=== PATIENT | male | born 1990 | race Caucasian/White ===

== ENCOUNTER 2017-12-08 19:43 | Inpatient (IN) | payer BC ==
[~2017-12-08] VITALS: Ht 177.8 cm; Wt 80.9 kg
[2017-12-08 20:50] VITALS: BP 202/113; PULSE 110; TEMP 97.9
[2017-12-08] MEDS ORDERED: APIDRAVL SQ (21:01)
[2017-12-08 23:11] VITALS: BP 197/108; PULSE 110; TEMP 98.1
[2017-12-09] VITALS (7 sets, daily range): BP systolic 150–179; BP diastolic 86–104; PULSE 101–113; TEMP 97.9–98.7
[2017-12-09 05:43] LABS: PH 5 (5-8); URINE APPEARANCE Clear; URINE BILIRUBIN Negative (NEGATIVE); URINE BLOOD 2+ (NEGATIVE); URINE COLOR Yellow; URINE GLUCOSE 3+ (NEGATIVE); URINE KETONE Negative (NEGATIVE); URINE LEUKOCYTE ESTERASE Negative (NEGATIVE); URINE NITRATE Negative (NEGATIVE); URINE PROTEIN(semi-quant) 3+ (NEGATIVE); URINE UROBILINOGEN Negative (NEGATIVE)
[2017-12-09 06:02] LABS: URINE RBC None Seen /hpf; URINE WBC 0-2 /hpf
[2017-12-09 06:03] LABS: AMORPHOUS CRYSTAL Present /uL; URINE BACTERIA Occasional /hpf
[2017-12-09 06:06] LABS: URINE PROTEIN:CREAT RATIO 23.04 (0.00-0.14)
[2017-12-09 06:08] LABS: COLLECTION METHOD CLEAN CATCH
[2017-12-09 06:46] LABS: MEAN CELL VOLUME 86 fl (80.0-100.0); MEAN CORPUSCULAR HGB CONC 35 g/dl (33.0-37.0); MEAN PLATELET VOLUME 9.1 fl (7.4-10.4); PLATELET COUNT 89 K/mm3 (130-400); RED BLOOD COUNT 2.09 M/mm3 (4.20-5.60); REDCELL DISTRIBUTION WIDTH-CV 14.4 % (11.5-14.5)
[2017-12-09 06:51] LABS: HEMATOCRIT 17.9 % (42.0-52.0); HEMOGLOBIN 6.2 g/dl (13.5-18.0); MEAN CORPUSCULAR HEMOGLOBIN 30 pg (27.0-31.0)
[2017-12-09 06:55] LABS: ALBUMIN 2.9 gm/dL (3.5-5.0); POTASSIUM 3.9 mmol/L (3.4-5.0)
[2017-12-09 07:11] LABS: CALCIUM 5.1 mg/dL (8.4-10.2); CREATININE, serum 18.25 mg/dL (0.66-1.25); PHOSPHOROUS 9.4 mg/dL (2.5-4.5)
[2017-12-09 08:56] LABS: BAND 15 % (0-10); LYMPHOCYTE 17 % (20.0-51.0); NEUTROPHILS 67 % (42.0-75.2); PLATELET ESTIMATE DECREASED (NORMAL)
[2017-12-09 09:44] LABS: CREATININE, serum 18.37 mg/dL (0.66-1.25)
[2017-12-09 11:51] LABS: RETIC # 0.09 M/mm3 (0.02-0.16); RETIC % 4.3 % (0.5-3.52)
[2017-12-09 12:24] LABS: CREATINE KINASE 1383 U/L (55-170); LACTATE DEHYDROGENASE 1569 U/L (313-618)
[2017-12-09 12:34] LABS: TOTAL IRON BINDING CAPACITY 325 ug/dL (261-462)
[2017-12-09 12:36] LABS: IRON,SERUM 81 ug/dL (35-150)
[2017-12-09 12:37] LABS: ERYTHROCYTE SEDIMENTATION RATE > 140 mm/hr (0-15)
[2017-12-09 13:00] LABS: FERRITIN 395 ng/mL (18-464)
[2017-12-09 18:13] LABS: MEAN CELL VOLUME 86 fl (80.0-100.0); MEAN CORPUSCULAR HGB CONC 34 g/dl (33.0-37.0); MEAN PLATELET VOLUME 8.4 fl (7.4-10.4); PLATELET COUNT 99 K/mm3 (130-400); RED BLOOD COUNT 2.18 M/mm3 (4.20-5.60); REDCELL DISTRIBUTION WIDTH-CV 14.5 % (11.5-14.5)
[2017-12-09 18:14] LABS: HEMATOCRIT 18.8 % (42.0-52.0); MEAN CORPUSCULAR HEMOGLOBIN 29 pg (27.0-31.0)
[2017-12-09 18:15] LABS: HEMOGLOBIN 6.4 g/dl (13.5-18.0)
[2017-12-09 18:22] LABS: ALBUMIN 3.2 gm/dL (3.5-5.0)
[2017-12-09 18:30] LABS: CREATININE, serum 18.16 mg/dL (0.66-1.25)
[2017-12-09 18:31] LABS: CALCIUM 4.9 mg/dL (8.4-10.2); PHOSPHOROUS 9.3 mg/dL (2.5-4.5)
[2017-12-10] VITALS (20 sets, daily range): BP systolic 143–185; BP diastolic 67–121; PULSE 78–116; TEMP 97.5–98.9
[2017-12-10 06:41] LABS: MEAN CELL VOLUME 86 fl (80.0-100.0); MEAN CORPUSCULAR HGB CONC 35 g/dl (33.0-37.0); MEAN PLATELET VOLUME 9.2 fl (7.4-10.4); PLATELET COUNT 98 K/mm3 (130-400); RED BLOOD COUNT 1.91 M/mm3 (4.20-5.60); REDCELL DISTRIBUTION WIDTH-CV 14.6 % (11.5-14.5)
[2017-12-10 06:45] LABS: MEAN CORPUSCULAR HEMOGLOBIN 30 pg (27.0-31.0)
[2017-12-10 06:46] LABS: HEMATOCRIT 16.5 % (42.0-52.0); HEMOGLOBIN 5.8 g/dl (13.5-18.0)
[2017-12-10 06:56] LABS: ALBUMIN 2.7 gm/dL (3.5-5.0); BILIRUBIN,TOTAL 0.3 mg/dL (0.0-1.0); POTASSIUM 4.3 mmol/L (3.4-5.0); TOTAL PROTEIN 5.2 gm/dL (6.4-8.2)
[2017-12-10 07:02] LABS: INR 1.1 (0.8-3.0); PROTHROMBIN TIME 12.2 SECONDS (9.7-12.8)
[2017-12-10 07:05] LABS: PARTIAL THROMBOPLASTIN TIME 28.5 SECONDS (26.0-37.0)
[2017-12-10 07:16] LABS: CREATININE, serum 19.02 mg/dL (0.66-1.25)
[2017-12-10 07:17] LABS: CALCIUM 5.9 mg/dL (8.4-10.2)
[2017-12-10 11:32] LABS: HIV 1/2 Antibodies Non-Reactive; HIV-1p24 Antigen Non-Reactive
[2017-12-10 17:20] LABS: PTH,INTACT 462.1 pg/mL (6.6-88.9)
[2017-12-10 19:54] LABS: HEMATOCRIT 22.3 % (42.0-52.0); HEMOGLOBIN 7.7 g/dl (13.5-18.0)
[2017-12-10 21:44] LABS: TRANSFERRIN 170 mg/dL (180-329)
[2017-12-11] VITALS (20 sets, daily range): BP systolic 144–184; BP diastolic 80–102; PULSE 93–105; TEMP 97.2–98.9
[2017-12-11 00:08] LABS: HEPATITIS B CORE AB,TOTAL Negative (()); HEPATITIS B SURFACE ANTIBODY <2.0 (()); HEPATITIS B SURFACE ANTIGEN Negative (())
[2017-12-11 00:19] LABS: FOLATE (FOLIC ACID) 5.9 ng/mL (7.0-31.4)
[2017-12-11 06:49] LABS: BASO # 0.1 (0.0-0.2); BASO % 0.6 % (0.0-2.0); EOS # 0.3 (0.0-0.7); EOS % 2.5 % (0-4.0); GRAN # 9.3 (1.4-6.5); LYMPH % 15.4 % (20.0-51.0); MEAN CELL VOLUME 85 fl (80.0-100.0); MEAN CORPUSCULAR HGB CONC 34 g/dl (33.0-37.0); MEAN PLATELET VOLUME 9.4 fl (7.4-10.4); MONO # 0.9 (0.1-0.6); MONO % 7.2 % (1.7-9.3); PLATELET COUNT 136 K/mm3 (130-400); RED BLOOD COUNT 2.81 M/mm3 (4.20-5.60); REDCELL DISTRIBUTION WIDTH-CV 14.9 % (11.5-14.5)
[2017-12-11 06:50] LABS: HEMOGLOBIN 8.2 g/dl (13.5-18.0); MEAN CORPUSCULAR HEMOGLOBIN 29 pg (27.0-31.0)
[2017-12-11 07:02] LABS: BILIRUBIN,TOTAL 0.5 mg/dL (0.0-1.0); CALCIUM 6.2 mg/dL (8.4-10.2); POTASSIUM 5.4 mmol/L (3.4-5.0); TOTAL PROTEIN 5.4 gm/dL (6.4-8.2)
[2017-12-11 07:16] LABS: CREATININE, serum 15.5 mg/dL (0.66-1.25)
[2017-12-11 16:51] LABS: URINE TOTAL VOLUME 1275 mL
[2017-12-11 17:15] LABS: URINE CREATININE CLEARANCE 4.5 mL/min (97-137)
[2017-12-11 22:33] LABS: C-ANCA 14 U/mL (0-99)
[2017-12-12] VITALS (8 sets, daily range): BP systolic 143–168; BP diastolic 81–98; PULSE 87–105; TEMP 97.8–98.4
[2017-12-12 06:55] LABS: ALBUMIN 2.7 gm/dL (3.5-5.0); BILIRUBIN,TOTAL 0.2 mg/dL (0.0-1.0); CALCIUM 6.9 mg/dL (8.4-10.2); POTASSIUM 3.7 mmol/L (3.4-5.0); TOTAL PROTEIN 5.1 gm/dL (6.4-8.2)
[2017-12-12 06:58] LABS: BASO % 0.3 % (0.0-2.0); EOS # 0.3 (0.0-0.7); EOS % 2.8 % (0-4.0); GRAN # 6.6 (1.4-6.5); GRAN % 65.2 % (42.2-75.2); LYMPH # 2.2 (1.2-3.4); LYMPH % 21.2 % (20.0-51.0); MEAN CELL VOLUME 85 fl (80.0-100.0); MEAN CORPUSCULAR HGB CONC 35 g/dl (33.0-37.0); MEAN PLATELET VOLUME 9.1 fl (7.4-10.4); MONO % 9.4 % (1.7-9.3); PLATELET COUNT 124 K/mm3 (130-400); RED BLOOD COUNT 2.68 M/mm3 (4.20-5.60); REDCELL DISTRIBUTION WIDTH-CV 14.8 % (11.5-14.5)
[2017-12-12 06:59] LABS: HEMATOCRIT 22.8 % (42.0-52.0); MEAN CORPUSCULAR HEMOGLOBIN 30 pg (27.0-31.0)
[2017-12-12 07:10] LABS: CREATININE, serum 12.6 mg/dL (0.66-1.25)
[2017-12-13] VITALS (12 sets, daily range): BP systolic 95–178; BP diastolic 73–100; PULSE 94–106; TEMP 97.9–98.7
[2017-12-13 07:01] LABS: BASO # 0.1 (0.0-0.2); BASO % 0.5 % (0.0-2.0); EOS # 0.5 (0.0-0.7); EOS % 3.9 % (0-4.0); GRAN % 66.6 % (42.2-75.2); LYMPH # 2.3 (1.2-3.4); LYMPH % 18.7 % (20.0-51.0); MEAN CELL VOLUME 86 fl (80.0-100.0); MEAN CORPUSCULAR HGB CONC 35 g/dl (33.0-37.0); MEAN PLATELET VOLUME 9.1 fl (7.4-10.4); MONO % 8.2 % (1.7-9.3); PLATELET COUNT 145 K/mm3 (130-400); REDCELL DISTRIBUTION WIDTH-CV 14.8 % (11.5-14.5); RETIC # 0.19 M/mm3 (0.02-0.16); RETIC % 6.6 % (0.5-3.52)
[2017-12-13 07:12] LABS: BILIRUBIN,TOTAL 0.3 mg/dL (0.0-1.0); POTASSIUM 3.8 mmol/L (3.4-5.0); TOTAL PROTEIN 5.6 gm/dL (6.4-8.2)
[2017-12-13 07:15] LABS: CREATININE, serum 13.99 mg/dL (0.66-1.25)
[2017-12-13 07:22] LABS: HEMATOCRIT 24.9 % (42.0-52.0); HEMOGLOBIN 8.6 g/dl (13.5-18.0); MEAN CORPUSCULAR HEMOGLOBIN 30 pg (27.0-31.0)
[2017-12-14] VITALS (12 sets, daily range): BP systolic 133–162; BP diastolic 61–94; PULSE 91–103; TEMP 98–98.2
[2017-12-14 06:28] LABS: BASO # 0.1 (0.0-0.2); BASO % 0.5 % (0.0-2.0); EOS # 0.4 (0.0-0.7); EOS % 3.1 % (0-4.0); GRAN % 67.9 % (42.2-75.2); LYMPH # 2.1 (1.2-3.4); LYMPH % 17.8 % (20.0-51.0); MEAN CELL VOLUME 86 fl (80.0-100.0); MEAN CORPUSCULAR HGB CONC 35 g/dl (33.0-37.0); MEAN PLATELET VOLUME 9.6 fl (7.4-10.4); MONO # 1.1 (0.1-0.6); MONO % 9.3 % (1.7-9.3); PLATELET COUNT 142 K/mm3 (130-400); REDCELL DISTRIBUTION WIDTH-CV 15.5 % (11.5-14.5)
[2017-12-14 06:31] LABS: HEMATOCRIT 24.2 % (42.0-52.0); HEMOGLOBIN 8.5 g/dl (13.5-18.0); MEAN CORPUSCULAR HEMOGLOBIN 30 pg (27.0-31.0)
[2017-12-14 06:43] LABS: ALBUMIN 2.8 gm/dL (3.5-5.0); BILIRUBIN,TOTAL 0.3 mg/dL (0.0-1.0); CALCIUM 7.1 mg/dL (8.4-10.2); POTASSIUM 5.3 mmol/L (3.4-5.0); TOTAL PROTEIN 5.1 gm/dL (6.4-8.2)
[2017-12-14 07:21] LABS: CREATININE, serum 10.99 mg/dL (0.66-1.25)
[2017-12-14 08:44] LABS: PARTIAL THROMBOPLASTIN TIME 22.5 SECONDS (26.0-37.0)
[2017-12-15] VITALS (9 sets, daily range): BP systolic 112–155; BP diastolic 61–83; PULSE 85–110; TEMP 97.8–99.4
[2017-12-15 07:19] LABS: MEAN CELL VOLUME 89 fl (80.0-100.0); MEAN CORPUSCULAR HGB CONC 34 g/dl (33.0-37.0); MEAN PLATELET VOLUME 9.8 fl (7.4-10.4); PLATELET COUNT 116 K/mm3 (130-400); RED BLOOD COUNT 2.65 M/mm3 (4.20-5.60); REDCELL DISTRIBUTION WIDTH-CV 16.7 % (11.5-14.5)
[2017-12-15 07:32] LABS: HEMATOCRIT 23.6 % (42.0-52.0); MEAN CORPUSCULAR HEMOGLOBIN 30 pg (27.0-31.0)
[2017-12-15 07:36] LABS: CALCIUM 7.5 mg/dL (8.4-10.2); POTASSIUM 4.2 mmol/L (3.4-5.0)
[2017-12-15 08:07] LABS: CREATININE, serum 9.11 mg/dL (0.66-1.25)
[2017-12-15 08:17] LABS: BAND 4 % (0-10); EOSINOPHIL 4 % (0-4); LYMPHOCYTE 27 % (20.0-51.0); NEUTROPHILS 54 % (42.0-75.2); PLATELET ESTIMATE DECREASED (NORMAL)
[2017-12-15 08:18] LABS: ANISOCYTOSIS 1+
[2017-12-15 17:22] LABS: HEMATOCRIT 22.2 % (42.0-52.0); HEMOGLOBIN 7.5 g/dl (13.5-18.0)
[2017-12-16 03:35] VITALS: BP 137/72; PULSE 90; TEMP 97.6
[2017-12-16 07:26] VITALS: BP 130/76; PULSE 83; TEMP 98.2
[2017-12-16 07:41] LABS: MEAN CELL VOLUME 90 fl (80.0-100.0); MEAN CORPUSCULAR HGB CONC 33 g/dl (33.0-37.0); PLATELET COUNT 129 K/mm3 (130-400); RED BLOOD COUNT 2.84 M/mm3 (4.20-5.60); REDCELL DISTRIBUTION WIDTH-CV 16.7 % (11.5-14.5)
[2017-12-16 07:44] LABS: HEMATOCRIT 25.5 % (42.0-52.0); HEMOGLOBIN 8.5 g/dl (13.5-18.0); MEAN CORPUSCULAR HEMOGLOBIN 30 pg (27.0-31.0)
[2017-12-16 07:52] LABS: CALCIUM 7.8 mg/dL (8.4-10.2); POTASSIUM 4.6 mmol/L (3.4-5.0)
[2017-12-16 08:08] LABS: CREATININE, serum 11.01 mg/dL (0.66-1.25)
[2017-12-16 10:23] LABS: BAND 4 % (0-10); BASOPHIL 1 % (0-2); EOSINOPHIL 5 % (0-4); LYMPHOCYTE 26 % (20.0-51.0); NEUTROPHILS 61 % (42.0-75.2); PLATELET ESTIMATE DECREASED (NORMAL)
[2017-12-16 10:24] LABS: ANISOCYTOSIS 1+
[2017-12-16 11:16] VITALS: BP 133/81; PULSE 90; TEMP 98.3
[2017-12-16 15:34] VITALS: BP 139/69; PULSE 84; TEMP 97.2
[2017-12-16 20:35] VITALS: BP 150/84; PULSE 85; TEMP 98.7
[2017-12-17 01:05] VITALS: BP 137/72; PULSE 85; TEMP 98.8
[2017-12-17 03:15] VITALS: BP 144/68; PULSE 57; TEMP 98.3
[2017-12-17 07:49] LABS: BASO % 0.3 % (0.0-2.0); EOS # 0.4 (0.0-0.7); GRAN # 6.7 (1.4-6.5); GRAN % 69.8 % (42.2-75.2); LYMPH # 1.6 (1.2-3.4); LYMPH % 16.7 % (20.0-51.0); MEAN CELL VOLUME 89 fl (80.0-100.0); MEAN CORPUSCULAR HGB CONC 34 g/dl (33.0-37.0); MEAN PLATELET VOLUME 9.4 fl (7.4-10.4); MONO # 0.8 (0.1-0.6); MONO % 8.1 % (1.7-9.3); PLATELET COUNT 122 K/mm3 (130-400); RED BLOOD COUNT 2.54 M/mm3 (4.20-5.60)
[2017-12-17 07:56] LABS: HEMATOCRIT 22.7 % (42.0-52.0); HEMOGLOBIN 7.7 g/dl (13.5-18.0); MEAN CORPUSCULAR HEMOGLOBIN 30 pg (27.0-31.0)
[2017-12-17 08:00] LABS: CALCIUM 7.4 mg/dL (8.4-10.2); POTASSIUM 5.1 mmol/L (3.4-5.0)
[2017-12-17 08:12] LABS: CREATININE, serum 12.5 mg/dL (0.66-1.25)
[2017-12-17 11:53] VITALS: BP 135/77; PULSE 87; TEMP 98.2
[2017-12-17 16:11] VITALS: BP 145/89; PULSE 90; TEMP 98.2
[2017-12-17 20:04] VITALS: BP 128/76; PULSE 92; TEMP 98.8
[2017-12-18 00:40] VITALS: BP 140/78; PULSE 93; TEMP 98.9
[2017-12-18 04:21] VITALS: BP 144/78; PULSE 92; TEMP 98.6
[2017-12-18 07:22] LABS: BASO % 0.4 % (0.0-2.0); EOS # 0.4 (0.0-0.7); EOS % 4.7 % (0-4.0); GRAN # 4.5 (1.4-6.5); LYMPH % 25.8 % (20.0-51.0); MEAN CELL VOLUME 90 fl (80.0-100.0); MEAN CORPUSCULAR HGB CONC 34 g/dl (33.0-37.0); MEAN PLATELET VOLUME 9.6 fl (7.4-10.4); MONO # 0.8 (0.1-0.6); MONO % 9.9 % (1.7-9.3); PLATELET COUNT 125 K/mm3 (130-400); RED BLOOD COUNT 2.63 M/mm3 (4.20-5.60); REDCELL DISTRIBUTION WIDTH-CV 17.1 % (11.5-14.5)
[2017-12-18 07:23] LABS: CALCIUM 7.8 mg/dL (8.4-10.2); POTASSIUM 5.3 mmol/L (3.4-5.0)
[2017-12-18 07:32] LABS: HEMATOCRIT 23.6 % (42.0-52.0); MEAN CORPUSCULAR HEMOGLOBIN 30 pg (27.0-31.0)
[2017-12-18 07:38] VITALS: BP 136/73; PULSE 85; TEMP 97.9
[2017-12-18 07:43] LABS: CREATININE, serum 9.52 mg/dL (0.66-1.25)
[2017-12-18] MEDS ORDERED: NORVASC 10MG10 MG PO (10:52)
[2017-12-18] MEDS ORDERED: ZESTRIL40 MG PO (10:52)
[2017-12-18] MEDS ORDERED: COREG12.5 MG PO (10:52)
[2017-12-18] MEDS ORDERED: TUMS500 MG PO (10:53)
[2017-12-18 12:32] VITALS: BP 138/68; PULSE 91; TEMP 98
== END 2017-12-18 12:50 | disposition home or self-care (01) | DRG 674 ==
LOC: MEDICAL 19:43
PROVIDERS: Internal Medicine; Internal Medicine Medical Oncology; Internal Medicine Nephrology; Nurse Practitioner
PROC: 02HV33Z Insertion of Infusion Device into Superior Vena Cava, Percutaneous Approach (ICD-10-PCS; 2017-12-10)
PROC: 5A1D70Z Performance of Urinary Filtration, Intermittent, Less than 6 Hours Per Day (ICD-10-PCS; 2017-12-10)
PROC: 5A1D70Z Performance of Urinary Filtration, Intermittent, Less than 6 Hours Per Day (ICD-10-PCS; 2017-12-11)
PROC: 0JH60XZ Insertion of Tunneled Vascular Access Device into Chest Subcutaneous Tissue and Fascia, Open Approach (ICD-10-PCS; 2017-12-13)
PROC: 02HV33Z Insertion of Infusion Device into Superior Vena Cava, Percutaneous Approach (ICD-10-PCS; 2017-12-13)
PROC: 5A1D70Z Performance of Urinary Filtration, Intermittent, Less than 6 Hours Per Day (ICD-10-PCS; 2017-12-13)
PROC: 0TB13ZX Excision of Left Kidney, Percutaneous Approach, Diagnostic (ICD-10-PCS; principal; 2017-12-14)
PROC: 5A1D70Z Performance of Urinary Filtration, Intermittent, Less than 6 Hours Per Day (ICD-10-PCS; 2017-12-14)
PROC: 5A1D70Z Performance of Urinary Filtration, Intermittent, Less than 6 Hours Per Day (ICD-10-PCS; 2017-12-17)
DX: N17.9 Acute kidney failure, unspecified (principal); E87.2 Acidosis; I16.0 Hypertensive urgency; I12.9 Hypertensive chronic kidney disease with stage 1 through stage 4 chronic kidney disease, or unspecified chronic kidney disease; N18.9 Chronic kidney disease, unspecified; E10.21 Type 1 diabetes mellitus with diabetic nephropathy; E10.65 Type 1 diabetes mellitus with hyperglycemia; E10.22 Type 1 diabetes mellitus with diabetic chronic kidney disease; Z96.41 Presence of insulin pump (external) (internal); D69.6 Thrombocytopenia, unspecified; E83.51 Hypocalcemia; E87.5 Hyperkalemia; D64.9 Anemia, unspecified
CPT/HCPCS: 87522; C1751; C1769; J0360; J0881; J1644; J1815; J1940; J2250; J2405; J2916; J3010; J3370; J7030; J7050; P9016

== ENCOUNTER → 2018-01-15 | Outpatient (CLI) | payer BC ==
[~2018-01-15] MED LIST: APIDRAVL SQ; COREG12.5 MG PO; NORVASC 10MG10 MG PO; TUMS500 MG PO; ZESTRIL40 MG PO
== END ==
LOC: COL.VAS 10:13
DX: Z01.818 Encounter for other preprocedural examination (principal)
CPT/HCPCS: G0365

== ENCOUNTER 2018-02-05 10:01 | Day surgery (SDC) | payer BC ==
[2018-02-05] VITALS (7 sets, daily range): BP systolic 125–182; BP diastolic 63–108; PULSE 82–96; TEMP 97.9–98
[~2018-02-05] VITALS: Ht 177.8 cm; Wt 75.7 kg
[2018-02-05] MEDS ORDERED: PRINIVIL40 MG PO (10:20)
[2018-02-05] MEDS ORDERED: PERCOCET 325 MG1 TA2 PO (16:31)
== END 2018-02-05 17:00 | disposition home or self-care (01) ==
LOC: SDCO 10:01
DX: E10.22 Type 1 diabetes mellitus with diabetic chronic kidney disease (principal); I12.0 Hypertensive chronic kidney disease with stage 5 chronic kidney disease or end stage renal disease; N18.6 End stage renal disease; Z99.2 Dependence on renal dialysis; Z96.41 Presence of insulin pump (external) (internal); Z79.4 Long term (current) use of insulin
CPT/HCPCS: C1768; J0360; J1170; J2250; J2405; J2704; J2765; J3010; J7030

== ENCOUNTER 2018-02-11 14:54 | Inpatient (IN) | payer BC ==
[~2018-02-11] VITALS: Ht 177.8 cm; Wt 76.0 kg
[~2018-02-11 14:54] MED LIST changes: +PERCOCET 325 MG1 TA2 PO; +PRINIVIL40 MG PO
[2018-02-11 15:51] LABS: BASO # 0.1 (0.0-0.2); BASO % 0.9 % (0.0-2.0); EOS # 0.2 (0.0-0.7); EOS % 2.5 % (0-4.0); GRAN # 4.5 (1.4-6.5); GRAN % 60.4 % (42.2-75.2); LYMPH # 1.9 (1.2-3.4); LYMPH % 24.9 % (20.0-51.0); MEAN CELL VOLUME 83 fl (80.0-100.0); MEAN CORPUSCULAR HGB CONC 35 g/dl (33.0-37.0); MEAN PLATELET VOLUME 8.8 fl (7.4-10.4); MONO # 0.8 (0.1-0.6); MONO % 10.9 % (1.7-9.3); PLATELET COUNT 84 K/mm3 (130-400); RED BLOOD COUNT 3.66 M/mm3 (4.20-5.60); REDCELL DISTRIBUTION WIDTH-CV 13.4 % (11.5-14.5)
[2018-02-11 15:53] LABS: HEMATOCRIT 30.2 % (42.0-52.0); HEMOGLOBIN 10.7 g/dl (13.5-18.0); MEAN CORPUSCULAR HEMOGLOBIN 29 pg (27.0-31.0)
[2018-02-11 16:02] LABS: ALANINE AMINOTRANSFERASE 33 U/L (21-72); ALBUMIN 4.1 gm/dL (3.5-5.0); ALKALINE PHOSPHATASE 69 U/L (50-136); ANION GAP 18 mmol/L (7-16); AST,SGOT 17 U/L (15-37); BILIRUBIN,TOTAL 0.7 mg/dL (0.0-1.0); BLOOD UREA NITROGEN 70 mg/dL (9-20); CALCIUM 8.7 mg/dL (8.4-10.2); CARBON DIOXIDE 24 mmol/L (22-30); CHLORIDE 98 mmol/L (98-107); POTASSIUM 5.1 mmol/L (3.4-5.0); SODIUM 140 mmol/L (137-145); TOTAL PROTEIN 7.2 gm/dL (6.4-8.2)
[2018-02-11 16:08] LABS: CREATININE, serum 13.53 mg/dL (0.66-1.25); GLUCOSE 39 mg/dL (74-106)
[2018-02-11 16:09] LABS: ACETONE,SERUM NEGATIVE
[2018-02-11 16:20] LABS: TROPONIN-I < 0.012 ng/mL (0.000-0.034)
[2018-02-11 19:27] VITALS: BP 172/98; PULSE 85; TEMP 97.7
[2018-02-11 19:34] VITALS: BP 172/98; PULSE 85; TEMP 97.7
[2018-02-11 23:26] VITALS: BP 179/88; PULSE 91; TEMP 97.9
[2018-02-12] VITALS (7 sets, daily range): BP systolic 145–172; BP diastolic 81–98; PULSE 82–96; TEMP 98–98.7
[2018-02-12 08:22] LABS: BASO % 0.8 % (0.0-2.0); EOS # 0.1 (0.0-0.7); EOS % 2.3 % (0-4.0); GRAN # 2.8 (1.4-6.5); GRAN % 53.3 % (42.2-75.2); LYMPH # 1.8 (1.2-3.4); LYMPH % 33.9 % (20.0-51.0); MEAN CELL VOLUME 83 fl (80.0-100.0); MEAN CORPUSCULAR HGB CONC 35 g/dl (33.0-37.0); MEAN PLATELET VOLUME 8.7 fl (7.4-10.4); MONO # 0.5 (0.1-0.6); MONO % 9.1 % (1.7-9.3); PLATELET COUNT 67 K/mm3 (130-400); RED BLOOD COUNT 3.16 M/mm3 (4.20-5.60); REDCELL DISTRIBUTION WIDTH-CV 13.2 % (11.5-14.5)
[2018-02-12 08:24] LABS: HEMATOCRIT 26.3 % (42.0-52.0); HEMOGLOBIN 9.3 g/dl (13.5-18.0); MEAN CORPUSCULAR HEMOGLOBIN 29 pg (27.0-31.0)
[2018-02-12 08:34] LABS: ALBUMIN 3.4 gm/dL (3.5-5.0); CALCIUM 8.2 mg/dL (8.4-10.2); PHOSPHOROUS 7.6 mg/dL (2.5-4.5); POTASSIUM 5.1 mmol/L (3.4-5.0)
[2018-02-12 09:07] LABS: CREATININE, serum 15.1 mg/dL (0.66-1.25)
[2018-02-13 03:57] VITALS: BP 167/93; PULSE 80; TEMP 98.1
[2018-02-13 07:56] VITALS: BP 161/85; PULSE 83; TEMP 97.8
[2018-02-13 09:15] LABS: HEMATOCRIT 28.3 % (42.0-52.0); HEMOGLOBIN 9.8 g/dl (13.5-18.0)
[2018-02-13 11:00] VITALS: BP 156/85; PULSE 89; TEMP 98.4
[2018-02-13 16:40] VITALS: BP 175/91; PULSE 91; TEMP 98.8
[2018-02-13 19:29] VITALS: BP 169/96; PULSE 89; TEMP 98
[2018-02-13 23:39] VITALS: BP 179/91; PULSE 86; TEMP 98.4
[2018-02-14] VITALS (8 sets, daily range): BP systolic 161–195; BP diastolic 93–109; PULSE 73–90; TEMP 96.3–98.5
[2018-02-15 04:14] VITALS: BP 163/93; PULSE 72; TEMP 97.8
[2018-02-15 08:00] VITALS: BP 161/106; PULSE 87
[2018-02-15 08:02] LABS: CALCIUM 8.9 mg/dL (8.4-10.2); POTASSIUM 5.2 mmol/L (3.4-5.0)
[2018-02-15 08:04] LABS: CREATININE, serum 10.77 mg/dL (0.66-1.25)
[2018-02-15] MEDS ORDERED: COREG 25MG25 MG/TAB PO (11:53)
[2018-02-15] MEDS ORDERED: ZOFRAN 4MG T4 MG/TAB PO (11:54)
[2018-02-15] MEDS ORDERED: LEVAQUIN 5500 MG/TA1 PO (11:55)
[2018-02-15] MEDS ORDERED: REGLAN 5MG T5 MG/TAB PO (11:56)
== END 2018-02-15 13:53 | disposition home or self-care (01) | DRG 193 ==
LOC: COL.ER 14:54 → MEDICAL 16:49
PROVIDERS: Emergency Medicine; Internal Medicine Nephrology
PROC: 5A1D70Z Performance of Urinary Filtration, Intermittent, Less than 6 Hours Per Day (ICD-10-PCS; principal; 2018-02-15)
PROC: 5A1D70Z Performance of Urinary Filtration, Intermittent, Less than 6 Hours Per Day (ICD-10-PCS; 2018-02-15)
PROC: 5A1D70Z Performance of Urinary Filtration, Intermittent, Less than 6 Hours Per Day (ICD-10-PCS; 2018-02-15)
DX: J18.9 Pneumonia, unspecified organism (principal); N18.6 End stage renal disease; I12.0 Hypertensive chronic kidney disease with stage 5 chronic kidney disease or end stage renal disease; E10.22 Type 1 diabetes mellitus with diabetic chronic kidney disease; E10.43 Type 1 diabetes mellitus with diabetic autonomic (poly)neuropathy; K31.84 Gastroparesis; D63.1 Anemia in chronic kidney disease; Z96.41 Presence of insulin pump (external) (internal); Z91.14 Patient's other noncompliance with medication regimen; Z79.4 Long term (current) use of insulin; Z99.2 Dependence on renal dialysis
CPT/HCPCS: J1956; J2405; J2550

== ENCOUNTER → 2018-03-07 | Outpatient (CLI) | payer BC ==
[~2018-03-07] MED LIST changes: +COREG 25MG25 MG/TAB PO; +LEVAQUIN 5500 MG/TA1 PO; +REGLAN 5MG T5 MG/TAB PO; +ZOFRAN 4MG T4 MG/TAB PO
== END ==
LOC: COL.VAS 09:59
DX: Z01.810 Encounter for preprocedural cardiovascular examination (principal); R03.0 Elevated blood-pressure reading, without diagnosis of hypertension; N18.6 End stage renal disease

== ENCOUNTER 2018-03-26 08:04 | Outpatient (CLI) | payer BC ==
[~2018-03-26] VITALS: Ht 177.8 cm; Wt 75.0 kg
[2018-03-26 08:17] VITALS: BP 177/119; PULSE 84; TEMP 98.2
[2018-03-26 10:17] VITALS: BP 184/108; PULSE 88
[2018-03-26 11:00] VITALS: BP 175/110; PULSE 89
== END 2018-03-26 12:36 | disposition home or self-care (01) ==
LOC: COL.CAR 08:04
DX: T82.898A Other specified complication of vascular prosthetic devices, implants and grafts, initial encounter (principal); I12.0 Hypertensive chronic kidney disease with stage 5 chronic kidney disease or end stage renal disease; N18.6 End stage renal disease; E11.9 Type 2 diabetes mellitus without complications; Z88.0 Allergy status to penicillin
CPT/HCPCS: J2250; J3010

== ENCOUNTER 2018-04-11 10:33 | Day surgery (SDC) | payer BC ==
[~2018-04-11] VITALS: Ht 177.8 cm; Wt 74.4 kg
[2018-04-11] MEDS ORDERED: REGLAN 5MG T5 MG/TAB PO (11:01)
[2018-04-11 11:30] VITALS: BP 184/103; PULSE 82; TEMP 97.8
[2018-04-11 14:07] VITALS: BP 155/92; PULSE 74; TEMP 98.2
[2018-04-11] MEDS ORDERED: NORCO 325 MG-51 TAB PO (14:11)
[2018-04-11 14:20] VITALS: BP 146/88; PULSE 71
[2018-04-11 14:35] VITALS: BP 159/90; PULSE 69
[2018-04-11 14:50] VITALS: BP 155/91; PULSE 74
== END 2018-04-11 15:30 | disposition home or self-care (01) ==
LOC: SDCO 10:33
DX: T82.598A Other mechanical complication of other cardiac and vascular devices and implants, initial encounter (principal); I77.0 Arteriovenous fistula, acquired; E10.9 Type 1 diabetes mellitus without complications; I10 Essential (primary) hypertension; Z79.899 Other long term (current) drug therapy
CPT/HCPCS: J0690; J2250; J2704; J3010; J7030

== ENCOUNTER → 2018-04-30 | Outpatient (CLI) | payer BC ==
[~2018-04-30] MED LIST changes: +NORCO 325 MG-51 TAB PO
== END ==
LOC: COL.VAS 12:17
DX: Z49.01 Encounter for fitting and adjustment of extracorporeal dialysis catheter (principal); I77.0 Arteriovenous fistula, acquired; N18.6 End stage renal disease

== ENCOUNTER → 2018-07-04 | Outpatient (CLI) | payer MEDICARE ==
[~2018-07-04] VITALS: Ht 177.8 cm; Wt 72.7 kg
[2018-07-04 07:32] VITALS: BP 193/107; PULSE 80
[2018-07-04 08:30] VITALS: BP 205/109; PULSE 75
[2018-07-04 08:45] VITALS: BP 192/110; PULSE 76
== END ==
LOC: COL.RAD 07-03 07:15
DX: Z45.2 Encounter for adjustment and management of vascular access device (principal); N18.6 End stage renal disease; Z99.2 Dependence on renal dialysis

== ENCOUNTER 2018-09-21 11:11 | Emergency (ER) | payer MEDICARE ==
[~2018-09-21] VITALS: Ht 177.8 cm; Wt 72.7 kg
[2018-09-21 11:18] VITALS: TEMP 98.1
[2018-09-21] MEDS ORDERED: ALDACTONE 25MG25 M1 PO (11:37)
[2018-09-21] MEDS ORDERED: HYTRIN 2MG CAPSU2 MG PO (11:38)
[2018-09-21] MEDS ORDERED: TYLENOL 500MG500 MG PO (11:39)
[2018-09-21] MEDS ORDERED: DIAMOX125 MG (11:40)
[2018-09-21] MEDS ORDERED: BETIMOL 5 ML5 ML OU (11:41)
[2018-09-21] MEDS ORDERED: COSOPT 2%-0.5%10 ML OU (11:42)
[2018-09-21 12:16] LABS: BASO # 0.1 (0.0-0.2); BASO % 1.2 % (0.0-2.0); EOS # 0.3 (0.0-0.7); EOS % 5.2 % (0-4.0); GRAN # 3.1 (1.4-6.5); GRAN % 60.4 % (42.2-75.2); LYMPH # 1.3 (1.2-3.4); LYMPH % 25.3 % (20.0-51.0); MEAN CELL VOLUME 88 fl (80.0-100.0); MEAN CORPUSCULAR HEMOGLOBIN 30 pg (27.0-31.0); MEAN CORPUSCULAR HGB CONC 34 g/dl (33.0-37.0); MEAN PLATELET VOLUME 8.8 fl (7.4-10.4); MONO # 0.4 (0.1-0.6); MONO % 7.5 % (1.7-9.3); PLATELET COUNT 118 K/mm3 (130-400); RED BLOOD COUNT 3.36 M/mm3 (4.20-5.60); REDCELL DISTRIBUTION WIDTH-CV 14.6 % (11.5-14.5)
[2018-09-21 12:17] LABS: HEMATOCRIT 29.4 % (42.0-52.0)
[2018-09-21 12:30] LABS: ALBUMIN 4.7 gm/dL (3.5-5.0); BILIRUBIN,TOTAL 0.6 mg/dL (0.0-1.0); C-REACTIVE PROTEIN 0.6 mg/dL (0.0-0.9); CALCIUM 9.3 mg/dL (8.4-10.2); TOTAL PROTEIN 7.5 gm/dL (6.4-8.2)
[2018-09-21 12:34] LABS: CREATININE, serum 16.72 mg/dL (0.66-1.25)
[2018-09-21 13:51] VITALS: BP 159/81; PULSE 73
== END 2018-09-21 13:45 | disposition home or self-care (01) ==
LOC: COL.ER 11:11
PROVIDERS: Physician Assistant
DX: R53.81 Other malaise (principal); E10.9 Type 1 diabetes mellitus without complications; I12.0 Hypertensive chronic kidney disease with stage 5 chronic kidney disease or end stage renal disease; N18.6 End stage renal disease; D63.1 Anemia in chronic kidney disease; E10.43 Type 1 diabetes mellitus with diabetic autonomic (poly)neuropathy; K31.84 Gastroparesis; Z99.2 Dependence on renal dialysis; Z90.89 Acquired absence of other organs; Z88.0 Allergy status to penicillin; Z79.4 Long term (current) use of insulin; Z88.1 Allergy status to other antibiotic agents

== ENCOUNTER 2018-09-21 17:17 | Inpatient (IN) | payer MEDICARE ==
[~2018-09-21] VITALS: Ht 177.8 cm; Wt 72.5 kg
[~2018-09-21 17:17] MED LIST changes: +ALDACTONE 25MG25 M1 PO; +BETIMOL 5 ML5 ML OU; +COSOPT 2%-0.5%10 ML OU; +DIAMOX125 MG; +HYTRIN 2MG CAPSU2 MG PO; +TYLENOL 500MG500 MG PO
[2018-09-21 18:25] LABS: PROTHROMBIN TIME 11.5 SECONDS (9.7-12.8)
[2018-09-21 18:30] LABS: MAGNESIUM 2.2 mg/dL (1.6-2.3); PHOSPHOROUS 4.1 mg/dL (2.5-4.5)
[2018-09-21 18:43] LABS: TROPONIN-I < 0.012 ng/mL (0.000-0.034)
[2018-09-21 20:32] VITALS: BP 183/97; PULSE 97; TEMP 98.9
[2018-09-21 22:15] VITALS: BP 172/90
[2018-09-22] VITALS (7 sets, daily range): BP systolic 157–192; BP diastolic 84–96; PULSE 70–85; TEMP 97.2–99.1
[2018-09-22 12:11] LABS: MAGNESIUM 2.4 mg/dL (1.6-2.3)
[2018-09-23 05:13] VITALS: BP 190/96; PULSE 74
[2018-09-23 06:14] LABS: BASO # 0.1 (0.0-0.2); BASO % 1.2 % (0.0-2.0); EOS # 0.3 (0.0-0.7); EOS % 5.6 % (0-4.0); GRAN # 2.5 (1.4-6.5); GRAN % 48.9 % (42.2-75.2); LYMPH # 1.8 (1.2-3.4); LYMPH % 34.4 % (20.0-51.0); MEAN CELL VOLUME 87 fl (80.0-100.0); MEAN CORPUSCULAR HGB CONC 34 g/dl (33.0-37.0); MONO # 0.5 (0.1-0.6); MONO % 9.1 % (1.7-9.3); PLATELET COUNT 129 K/mm3 (130-400); RED BLOOD COUNT 3.25 M/mm3 (4.20-5.60); REDCELL DISTRIBUTION WIDTH-CV 14.4 % (11.5-14.5)
[2018-09-23 06:15] LABS: HEMATOCRIT 28.3 % (42.0-52.0); HEMOGLOBIN 9.7 g/dl (13.5-18.0); MEAN CORPUSCULAR HEMOGLOBIN 30 pg (27.0-31.0)
[2018-09-23 06:21] LABS: CALCIUM 9.3 mg/dL (8.4-10.2); POTASSIUM 4.2 mmol/L (3.4-5.0)
[2018-09-23 06:28] LABS: CREATININE, serum 14.53 mg/dL (0.66-1.25)
[2018-09-23 08:34] VITALS: BP 176/96; PULSE 78; TEMP 98.7
[2018-09-23 12:04] VITALS: BP 179/97; PULSE 74; TEMP 98.3
[2018-09-23] MEDS ORDERED: PLAVIX 75MG TAB75 MG PO (15:05)
[2018-09-23] MEDS ORDERED: LOVENOX 3030 MG/0.3 SQ (15:06)
[2018-09-23] MEDS ORDERED: [UNRECOGNIZED DRUG - OTHER] IV (15:08)
[2018-09-23] MEDS ORDERED: HEPARIN SOD U IV (15:08)
[2018-09-23] MEDS ORDERED: NOVLOG SQ (17:35)
== END 2018-09-23 16:48 | DRG 64 ==
LOC: COL.ER 17:17 → MEDICAL 18:18
PROVIDERS: Emergency Medicine; Internal Medicine; Psychiatry & Neurology Neurology
PROC: 5A1D70Z Performance of Urinary Filtration, Intermittent, Less than 6 Hours Per Day (ICD-10-PCS; principal; 2018-09-23)
DX: I63.9 Cerebral infarction, unspecified (principal); N18.6 End stage renal disease; G81.91 Hemiplegia, unspecified affecting right dominant side; I12.0 Hypertensive chronic kidney disease with stage 5 chronic kidney disease or end stage renal disease; H33.21 Serous retinal detachment, right eye; E10.22 Type 1 diabetes mellitus with diabetic chronic kidney disease; Z99.2 Dependence on renal dialysis; Z96.41 Presence of insulin pump (external) (internal); Z79.4 Long term (current) use of insulin; Z87.891 Personal history of nicotine dependence; E83.41 Hypermagnesemia; E10.65 Type 1 diabetes mellitus with hyperglycemia
CPT/HCPCS: G0378; G8978-GP; G8979-GP; J1170; J1650; J1815; J2405

== ENCOUNTER 2018-09-23 15:41 | Inpatient (IN) | payer MEDICARE, OTHER ==
[~2018-09-23] VITALS: Ht 177.8 cm; Wt 73.0 kg
[~2018-09-23 15:41] MED LIST changes: +HEPARIN SOD U IV; +LOVENOX 3030 MG/0.3 SQ; +PLAVIX 75MG TAB75 MG PO; +[UNRECOGNIZED DRUG - OTHER] IV
[2018-09-23] MEDS ORDERED: NOVLOG SQ (17:35)
[2018-09-23 18:40] VITALS: BP 154/89; PULSE 76; TEMP 98.6
[2018-09-23 19:10] VITALS: BP 154/89; PULSE 76; TEMP 98.6
[2018-09-24 06:04] VITALS: BP 181/89; PULSE 72; TEMP 98.5
[2018-09-24 09:04] VITALS: BP 171/93; PULSE 73; TEMP 98.6
[2018-09-24 18:00] VITALS: BP 170/98; PULSE 71; TEMP 98.2
[2018-09-25 06:15] VITALS: BP 182/98; PULSE 77; TEMP 97.9
[2018-09-25 09:03] LABS: BASO # 0.1 (0.0-0.2); BASO % 1.5 % (0.0-2.0); EOS # 0.3 (0.0-0.7); EOS % 4.6 % (0-4.0); GRAN # 3.6 (1.4-6.5); GRAN % 53.7 % (42.2-75.2); HEMOGLOBIN 10.8 g/dl (13.5-18.0); LYMPH % 29.9 % (20.0-51.0); MEAN CELL VOLUME 86 fl (80.0-100.0); MEAN CORPUSCULAR HEMOGLOBIN 30 pg (27.0-31.0); MEAN CORPUSCULAR HGB CONC 35 g/dl (33.0-37.0); MEAN PLATELET VOLUME 8.6 fl (7.4-10.4); MONO # 0.7 (0.1-0.6); MONO % 9.6 % (1.7-9.3); PLATELET COUNT 166 K/mm3 (130-400); RED BLOOD COUNT 3.59 M/mm3 (4.20-5.60); REDCELL DISTRIBUTION WIDTH-CV 14.4 % (11.5-14.5)
[2018-09-25 09:04] LABS: HEMATOCRIT 30.8 % (42.0-52.0)
[2018-09-25 09:13] LABS: ALBUMIN 4.5 gm/dL (3.5-5.0); CALCIUM 9.6 mg/dL (8.4-10.2); PHOSPHOROUS 7.6 mg/dL (2.5-4.5); POTASSIUM 4.6 mmol/L (3.4-5.0)
[2018-09-25 09:26] LABS: CREATININE, serum 13.69 mg/dL (0.66-1.25)
[2018-09-25 12:59] VITALS: BP 174/97; PULSE 75; TEMP 97.6
[2018-09-25 18:26] VITALS: BP 173/93; PULSE 78; TEMP 98.9
[2018-09-26 03:55] VITALS: BP 174/96; PULSE 64; TEMP 98.6
[2018-09-26 04:03] VITALS: BP 162/95; PULSE 62
[2018-09-26 17:05] VITALS: BP 161/91; PULSE 81
[2018-09-26 20:54] VITALS: BP 155/93; PULSE 78
[2018-09-27 00:41] VITALS: BP 148/87
[2018-09-27 04:11] VITALS: BP 147/89; PULSE 69; TEMP 98.5
[2018-09-27 09:17] LABS: BASO # 0.1 (0.0-0.2); BASO % 1.3 % (0.0-2.0); EOS # 0.3 (0.0-0.7); EOS % 4.8 % (0-4.0); GRAN # 3.9 (1.4-6.5); GRAN % 56.2 % (42.2-75.2); HEMOGLOBIN 11.3 g/dl (13.5-18.0); LYMPH # 2.1 (1.2-3.4); LYMPH % 29.9 % (20.0-51.0); MEAN CELL VOLUME 87 fl (80.0-100.0); MEAN CORPUSCULAR HEMOGLOBIN 30 pg (27.0-31.0); MEAN CORPUSCULAR HGB CONC 35 g/dl (33.0-37.0); MONO # 0.5 (0.1-0.6); MONO % 7.4 % (1.7-9.3); PLATELET COUNT 150 K/mm3 (130-400); RED BLOOD COUNT 3.73 M/mm3 (4.20-5.60); REDCELL DISTRIBUTION WIDTH-CV 14.9 % (11.5-14.5)
[2018-09-27 09:18] LABS: HEMATOCRIT 32.6 % (42.0-52.0)
[2018-09-27 09:28] LABS: ALBUMIN 4.6 gm/dL (3.5-5.0); CALCIUM 9.6 mg/dL (8.4-10.2); PHOSPHOROUS 5.6 mg/dL (2.5-4.5); POTASSIUM 3.8 mmol/L (3.4-5.0)
[2018-09-27 09:44] LABS: CREATININE, serum 8.23 mg/dL (0.66-1.25)
[2018-09-27 12:08] VITALS: BP 144/100; PULSE 73; TEMP 98.3
[2018-09-27 16:59] VITALS: BP 172/100; PULSE 72; TEMP 98.2
[2018-09-27 19:40] VITALS: BP 151/89; PULSE 72; TEMP 98.5
[2018-09-28] VITALS (9 sets, daily range): BP systolic 134–175; BP diastolic 83–102; PULSE 66–100; TEMP 97.7–98.5
[2018-09-29] VITALS (9 sets, daily range): BP systolic 141–184; BP diastolic 81–97; PULSE 67–73; TEMP 98.2–98.5
[2018-09-30] VITALS (7 sets, daily range): BP systolic 161–198; BP diastolic 89–110; PULSE 69–92; TEMP 97.8–98.4
[2018-09-30 06:34] LABS: BASO # 0.1 (0.0-0.2); BASO % 0.9 % (0.0-2.0); EOS # 0.4 (0.0-0.7); EOS % 4.8 % (0-4.0); GRAN # 4.7 (1.4-6.5); GRAN % 61.7 % (42.2-75.2); LYMPH # 1.9 (1.2-3.4); LYMPH % 24.5 % (20.0-51.0); MEAN CELL VOLUME 89 fl (80.0-100.0); MEAN CORPUSCULAR HEMOGLOBIN 30 pg (27.0-31.0); MEAN CORPUSCULAR HGB CONC 34 g/dl (33.0-37.0); MEAN PLATELET VOLUME 8.9 fl (7.4-10.4); MONO # 0.6 (0.1-0.6); MONO % 7.7 % (1.7-9.3); PLATELET COUNT 144 K/mm3 (130-400); RED BLOOD COUNT 3.63 M/mm3 (4.20-5.60); REDCELL DISTRIBUTION WIDTH-CV 14.7 % (11.5-14.5)
[2018-09-30 06:35] LABS: HEMATOCRIT 32.4 % (42.0-52.0)
[2018-09-30 06:48] LABS: ALBUMIN 4.6 gm/dL (3.5-5.0); CALCIUM 9.3 mg/dL (8.4-10.2)
[2018-09-30 06:54] LABS: POTASSIUM 7.8 mmol/L (3.4-5.0)
[2018-09-30 06:55] LABS: CREATININE, serum 15.15 mg/dL (0.66-1.25); PHOSPHOROUS 12.9 mg/dL (2.5-4.5)
[2018-10-01 00:04] VITALS: BP 170/87
[2018-10-01 06:14] VITALS: BP 178/89; PULSE 84; TEMP 98.5
[2018-10-01 10:00] VITALS: BP 164/92; PULSE 79; TEMP 98.1
[2018-10-01 14:41] VITALS: BP 150/79
[2018-10-01 18:30] VITALS: BP 145/85; PULSE 82; TEMP 98
[2018-10-01 22:09] VITALS: BP 168/91; PULSE 77; TEMP 98.7
[2018-10-02 00:30] VITALS: BP 167/91; PULSE 75; TEMP 98.3
[2018-10-02 05:02] VITALS: BP 170/95; PULSE 73; TEMP 98.6
[2018-10-02 08:54] LABS: BASO # 0.1 (0.0-0.2); BASO % 1.2 % (0.0-2.0); EOS # 0.4 (0.0-0.7); GRAN # 4.5 (1.4-6.5); GRAN % 61.1 % (42.2-75.2); LYMPH # 1.8 (1.2-3.4); LYMPH % 23.6 % (20.0-51.0); MEAN CELL VOLUME 90 fl (80.0-100.0); MEAN CORPUSCULAR HEMOGLOBIN 31 pg (27.0-31.0); MEAN CORPUSCULAR HGB CONC 34 g/dl (33.0-37.0); MEAN PLATELET VOLUME 8.7 fl (7.4-10.4); MONO # 0.6 (0.1-0.6); MONO % 8.6 % (1.7-9.3); PLATELET COUNT 153 K/mm3 (130-400); RED BLOOD COUNT 3.61 M/mm3 (4.20-5.60); REDCELL DISTRIBUTION WIDTH-CV 14.4 % (11.5-14.5)
[2018-10-02 08:55] LABS: HEMATOCRIT 32.4 % (42.0-52.0)
[2018-10-02 09:11] LABS: ALBUMIN 4.5 gm/dL (3.5-5.0); CALCIUM 9.6 mg/dL (8.4-10.2)
[2018-10-02 09:21] LABS: PHOSPHOROUS 11.2 mg/dL (2.5-4.5)
[2018-10-02 09:22] LABS: CREATININE, serum 14.66 mg/dL (0.66-1.25); POTASSIUM 7.7 mmol/L (3.4-5.0)
[2018-10-02 18:08] VITALS: BP 150/91; PULSE 87; TEMP 99
[2018-10-02 18:10] VITALS: BP 137/80; PULSE 92
[2018-10-02 18:12] VITALS: BP 128/81; PULSE 90
[2018-10-02 21:10] VITALS: BP 154/88; PULSE 86
[2018-10-03] VITALS (8 sets, daily range): BP systolic 119–170; BP diastolic 76–92; PULSE 72–88; TEMP 97.9–99.1
[2018-10-04 02:10] VITALS: BP 168/84; PULSE 71; TEMP 98.4
[2018-10-04 06:08] VITALS: BP 168/88; PULSE 74
[2018-10-04 09:47] LABS: BASO # 0.1 (0.0-0.2); BASO % 1.3 % (0.0-2.0); EOS # 0.3 (0.0-0.7); EOS % 4.4 % (0-4.0); GRAN # 4.8 (1.4-6.5); GRAN % 61.2 % (42.2-75.2); HEMOGLOBIN 10.6 g/dl (13.5-18.0); LYMPH # 1.9 (1.2-3.4); LYMPH % 24.2 % (20.0-51.0); MEAN CELL VOLUME 91 fl (80.0-100.0); MEAN CORPUSCULAR HEMOGLOBIN 31 pg (27.0-31.0); MEAN CORPUSCULAR HGB CONC 34 g/dl (33.0-37.0); MEAN PLATELET VOLUME 9.5 fl (7.4-10.4); MONO # 0.7 (0.1-0.6); MONO % 8.5 % (1.7-9.3); PLATELET COUNT 131 K/mm3 (130-400); RED BLOOD COUNT 3.47 M/mm3 (4.20-5.60); REDCELL DISTRIBUTION WIDTH-CV 13.9 % (11.5-14.5)
[2018-10-04 09:48] LABS: HEMATOCRIT 31.5 % (42.0-52.0)
[2018-10-04 10:04] LABS: ALBUMIN 4.4 gm/dL (3.5-5.0); CALCIUM 9.7 mg/dL (8.4-10.2)
[2018-10-04 10:12] LABS: CREATININE, serum 14.6 mg/dL (0.66-1.25); POTASSIUM 6.7 mmol/L (3.4-5.0)
[2018-10-04 10:24] VITALS: BP 179/86; PULSE 72; TEMP 98.5
[2018-10-04 14:32] VITALS: BP 170/80; PULSE 75; TEMP 98.7
[2018-10-04 17:39] VITALS: BP 171/86; PULSE 85; TEMP 98.6
[2018-10-05] VITALS (7 sets, daily range): BP systolic 129–186; BP diastolic 68–99; PULSE 72–81; TEMP 97.9–98.6
[2018-10-05 09:05] LABS: CALCIUM 9.7 mg/dL (8.4-10.2); POTASSIUM 5.3 mmol/L (3.4-5.0)
[2018-10-05 09:09] LABS: CREATININE, serum 12.6 mg/dL (0.66-1.25)
[2018-10-06 04:19] VITALS: BP 164/93; PULSE 76; TEMP 98.5
[2018-10-06 08:32] VITALS: BP 175/95; PULSE 78; TEMP 98.3
[2018-10-06 11:44] VITALS: BP 167/92; PULSE 78; TEMP 98.3
[2018-10-06 15:28] VITALS: BP 162/90; PULSE 75; TEMP 98.4
[2018-10-06 20:32] VITALS: BP 184/98; PULSE 90
[2018-10-07] VITALS (7 sets, daily range): BP systolic 156–200; BP diastolic 86–120; PULSE 75–92; TEMP 97.8–99
[2018-10-07 09:04] LABS: BASO # 0.1 (0.0-0.2); BASO % 0.9 % (0.0-2.0); EOS # 0.4 (0.0-0.7); EOS % 4.8 % (0-4.0); GRAN # 4.8 (1.4-6.5); GRAN % 64.3 % (42.2-75.2); HEMOGLOBIN 10.4 g/dl (13.5-18.0); LYMPH # 1.6 (1.2-3.4); LYMPH % 21.8 % (20.0-51.0); MEAN CELL VOLUME 89 fl (80.0-100.0); MEAN CORPUSCULAR HEMOGLOBIN 31 pg (27.0-31.0); MEAN CORPUSCULAR HGB CONC 35 g/dl (33.0-37.0); MEAN PLATELET VOLUME 9.6 fl (7.4-10.4); MONO # 0.6 (0.1-0.6); MONO % 8.1 % (1.7-9.3); PLATELET COUNT 131 K/mm3 (130-400); RED BLOOD COUNT 3.36 M/mm3 (4.20-5.60); REDCELL DISTRIBUTION WIDTH-CV 13.4 % (11.5-14.5)
[2018-10-07 09:06] LABS: HEMATOCRIT 29.9 % (42.0-52.0)
[2018-10-07 09:12] LABS: ALBUMIN 4.2 gm/dL (3.5-5.0); CALCIUM 9.6 mg/dL (8.4-10.2)
[2018-10-07 09:22] LABS: PHOSPHOROUS 11.6 mg/dL (2.5-4.5)
[2018-10-07 09:24] LABS: CREATININE, serum 17.34 mg/dL (0.66-1.25)
[2018-10-08 00:44] VITALS: BP 201/100; PULSE 93; TEMP 99.3
[2018-10-08 04:57] VITALS: BP 192/91; PULSE 88; TEMP 99.5
[2018-10-08 08:00] VITALS: BP 192/110; PULSE 89; TEMP 98.5
[2018-10-08 12:00] VITALS: BP 182/110; PULSE 87; TEMP 98.4
[2018-10-08] MEDS ORDERED: DIAMOX125 MG PO (14:06)
[2018-10-08] MEDS ORDERED: REGLAN 10MG10 MG/TAB PO (14:07)
== END 2018-10-08 13:10 | DRG 56 ==
PROVIDERS: Internal Medicine; Internal Medicine Nephrology
PROC: 5A1D70Z Performance of Urinary Filtration, Intermittent, Less than 6 Hours Per Day (ICD-10-PCS; principal; 2018-09-24)
PROC: 5A1D70Z Performance of Urinary Filtration, Intermittent, Less than 6 Hours Per Day (ICD-10-PCS; 2018-09-25)
PROC: 5A1D70Z Performance of Urinary Filtration, Intermittent, Less than 6 Hours Per Day (ICD-10-PCS; 2018-09-27)
PROC: 5A1D70Z Performance of Urinary Filtration, Intermittent, Less than 6 Hours Per Day (ICD-10-PCS; 2018-09-30)
PROC: 5A1D70Z Performance of Urinary Filtration, Intermittent, Less than 6 Hours Per Day (ICD-10-PCS; 2018-10-02)
PROC: 5A1D70Z Performance of Urinary Filtration, Intermittent, Less than 6 Hours Per Day (ICD-10-PCS; 2018-10-04)
PROC: 5A1D70Z Performance of Urinary Filtration, Intermittent, Less than 6 Hours Per Day (ICD-10-PCS; 2018-10-07)
DX: I69.351 Hemiplegia and hemiparesis following cerebral infarction affecting right dominant side (principal); N18.6 End stage renal disease; I12.0 Hypertensive chronic kidney disease with stage 5 chronic kidney disease or end stage renal disease; E10.22 Type 1 diabetes mellitus with diabetic chronic kidney disease; Z99.2 Dependence on renal dialysis; Z96.41 Presence of insulin pump (external) (internal); Z79.4 Long term (current) use of insulin; E10.42 Type 1 diabetes mellitus with diabetic polyneuropathy; E10.319 Type 1 diabetes mellitus with unspecified diabetic retinopathy without macular edema; D63.1 Anemia in chronic kidney disease; H40.811 Glaucoma with increased episcleral venous pressure, right eye
CPT/HCPCS: 99222-AI; 99232-AI; J0882; J1170; J1644; J1650; J1815; J2270; J2405; J2765

== ENCOUNTER 2018-10-08 13:54 | Inpatient (IN) | payer MEDICARE ==
[~2018-10-08] VITALS: Ht 177.8 cm; Wt 73.0 kg
[~2018-10-08 13:54] MED LIST changes: +NOVLOG SQ
[2018-10-08] MEDS ORDERED: DIAMOX125 MG PO (14:06)
[2018-10-08] MEDS ORDERED: REGLAN 10MG10 MG/TAB PO (14:07)
[2018-10-08 15:30] VITALS: BP 173/93
[2018-10-08 17:46] VITALS: BP 138/79; PULSE 100; TEMP 98.1
[2018-10-08 17:47] VITALS: BP 173/95; PULSE 100; TEMP 98.1
[2018-10-08 19:59] VITALS: BP 172/90; PULSE 85; TEMP 98.1
[2018-10-08 23:58] VITALS: BP 159/85; PULSE 81; TEMP 97.3
[2018-10-09] VITALS (7 sets, daily range): BP systolic 154–184; BP diastolic 89–97; PULSE 75–96; TEMP 98.1–99.1
[2018-10-09 06:30] LABS: BASO # 0.1 (0.0-0.2); BASO % 1.2 % (0.0-2.0); EOS # 0.3 (0.0-0.7); EOS % 3.8 % (0-4.0); GRAN % 54.4 % (42.2-75.2); HEMATOCRIT 30.4 % (42.0-52.0); HEMOGLOBIN 10.3 g/dl (13.5-18.0); LYMPH # 2.2 (1.2-3.4); LYMPH % 30.6 % (20.0-51.0); MEAN CELL VOLUME 89 fl (80.0-100.0); MEAN CORPUSCULAR HEMOGLOBIN 30 pg (27.0-31.0); MEAN CORPUSCULAR HGB CONC 34 g/dl (33.0-37.0); MONO # 0.7 (0.1-0.6); MONO % 9.6 % (1.7-9.3); PLATELET COUNT 144 K/mm3 (130-400); RED BLOOD COUNT 3.41 M/mm3 (4.20-5.60); REDCELL DISTRIBUTION WIDTH-CV 13.2 % (11.5-14.5)
[2018-10-09 06:37] LABS: ALBUMIN 4.1 gm/dL (3.5-5.0); CALCIUM 9.9 mg/dL (8.4-10.2)
[2018-10-09 06:46] LABS: CREATININE, serum 15.14 mg/dL (0.66-1.25)
[2018-10-09 06:58] LABS: PHOSPHOROUS 8.5 mg/dL (2.5-4.5)
[2018-10-10] VITALS (12 sets, daily range): BP systolic 165–194; BP diastolic 87–99; PULSE 84–95; TEMP 98.3–99
[2018-10-10 06:00] LABS: BASO # 0.1 (0.0-0.2); BASO % 1.2 % (0.0-2.0); EOS # 0.2 (0.0-0.7); EOS % 2.7 % (0-4.0); GRAN # 3.8 (1.4-6.5); LYMPH # 1.2 (1.2-3.4); LYMPH % 20.5 % (20.0-51.0); MEAN CELL VOLUME 90 fl (80.0-100.0); MEAN CORPUSCULAR HGB CONC 34 g/dl (33.0-37.0); MEAN PLATELET VOLUME 9.7 fl (7.4-10.4); MONO # 0.6 (0.1-0.6); MONO % 10.9 % (1.7-9.3); PLATELET COUNT 135 K/mm3 (130-400); RED BLOOD COUNT 3.16 M/mm3 (4.20-5.60); REDCELL DISTRIBUTION WIDTH-CV 12.9 % (11.5-14.5)
[2018-10-10 06:06] LABS: HEMATOCRIT 28.3 % (42.0-52.0); HEMOGLOBIN 9.6 g/dl (13.5-18.0); MEAN CORPUSCULAR HEMOGLOBIN 30 pg (27.0-31.0)
[2018-10-10 06:33] LABS: ALBUMIN 3.8 gm/dL (3.5-5.0); CALCIUM 9.2 mg/dL (8.4-10.2); PHOSPHOROUS 6.4 mg/dL (2.5-4.5); POTASSIUM 5.4 mmol/L (3.4-5.0)
[2018-10-10 06:54] LABS: CREATININE, serum 10.16 mg/dL (0.66-1.25)
[2018-10-11 03:40] VITALS: BP 182/92; PULSE 81; TEMP 98.1
[2018-10-11 06:09] LABS: BASO # 0.1 (0.0-0.2); EOS # 0.3 (0.0-0.7); EOS % 4.3 % (0-4.0); GRAN # 3.9 (1.4-6.5); GRAN % 58.2 % (42.2-75.2); LYMPH # 1.7 (1.2-3.4); MEAN CELL VOLUME 90 fl (80.0-100.0); MEAN CORPUSCULAR HGB CONC 34 g/dl (33.0-37.0); MEAN PLATELET VOLUME 9.4 fl (7.4-10.4); MONO # 0.6 (0.1-0.6); MONO % 9.6 % (1.7-9.3); PLATELET COUNT 159 K/mm3 (130-400); RED BLOOD COUNT 3.02 M/mm3 (4.20-5.60)
[2018-10-11 06:14] LABS: HEMATOCRIT 27.2 % (42.0-52.0); HEMOGLOBIN 9.2 g/dl (13.5-18.0); MEAN CORPUSCULAR HEMOGLOBIN 30 pg (27.0-31.0)
[2018-10-11 06:23] LABS: ALBUMIN 3.6 gm/dL (3.5-5.0); CALCIUM 9.2 mg/dL (8.4-10.2); PHOSPHOROUS 6.5 mg/dL (2.5-4.5); POTASSIUM 5.3 mmol/L (3.4-5.0)
[2018-10-11 06:25] LABS: CREATININE, serum 12.65 mg/dL (0.66-1.25)
[2018-10-11 08:32] VITALS: BP 162/88; PULSE 85; TEMP 98.1
[2018-10-11] MEDS ORDERED: HYTRIN 5MG C5 MG/CAP PO (11:18)
[2018-10-11] MEDS ORDERED: DAZIDOX10 MG PO (11:19)
[2018-10-11] MEDS ORDERED: DIAMOX 250MG250 MG PO (11:21)
[2018-10-11] MEDS ORDERED: REGLAN 10MG10 MG/TAB PO (11:22)
[2018-10-11 16:44] VITALS: BP 183/92; PULSE 91; TEMP 98.1
== END 2018-10-11 16:55 | disposition home or self-care (01) | DRG 73 ==
LOC: MEDICAL 13:54
PROVIDERS: Internal Medicine Nephrology
PROC: 5A1D70Z Performance of Urinary Filtration, Intermittent, Less than 6 Hours Per Day (ICD-10-PCS; principal; 2018-10-09)
PROC: 5A1D70Z Performance of Urinary Filtration, Intermittent, Less than 6 Hours Per Day (ICD-10-PCS; 2018-10-11)
DX: E10.43 Type 1 diabetes mellitus with diabetic autonomic (poly)neuropathy (principal); N18.6 End stage renal disease; I12.0 Hypertensive chronic kidney disease with stage 5 chronic kidney disease or end stage renal disease; I69.351 Hemiplegia and hemiparesis following cerebral infarction affecting right dominant side; K31.84 Gastroparesis; I16.0 Hypertensive urgency; Z79.4 Long term (current) use of insulin; E10.22 Type 1 diabetes mellitus with diabetic chronic kidney disease; Z99.2 Dependence on renal dialysis; E10.21 Type 1 diabetes mellitus with diabetic nephropathy; E10.319 Type 1 diabetes mellitus with unspecified diabetic retinopathy without macular edema; H33.051 Total retinal detachment, right eye; D63.1 Anemia in chronic kidney disease; Z96.41 Presence of insulin pump (external) (internal); H40.811 Glaucoma with increased episcleral venous pressure, right eye
CPT/HCPCS: 99239; J1815

== ENCOUNTER 2018-10-26 21:16 | Inpatient (IN) | payer MEDICARE ==
[~2018-10-26] VITALS: Ht 177.8 cm; Wt 68.6 kg
[~2018-10-26 21:16] MED LIST changes: +COSOPT 2%-0.5%10 ML OD; -COSOPT 2%-0.5%10 ML OU; +DAZIDOX10 MG PO; +DIAMOX 250MG250 MG PO; +DIAMOX125 MG PO; +HYTRIN 5MG C5 MG/CAP PO; +REGLAN 10MG10 MG/TAB PO
[2018-10-26 21:55] LABS: BASO # 0.1 (0.0-0.2); EOS # 0.1 (0.0-0.7); EOS % 1.8 % (0-4.0); GRAN # 4.2 (1.4-6.5); GRAN % 66.9 % (42.2-75.2); HEMATOCRIT 37.9 % (42.0-52.0); HEMOGLOBIN 12.3 g/dl (13.5-18.0); LYMPH # 1.2 (1.2-3.4); LYMPH % 18.6 % (20.0-51.0); MEAN CELL VOLUME 95 fl (80.0-100.0); MEAN CORPUSCULAR HEMOGLOBIN 31 pg (27.0-31.0); MEAN CORPUSCULAR HGB CONC 33 g/dl (33.0-37.0); MEAN PLATELET VOLUME 9.1 fl (7.4-10.4); MONO # 0.7 (0.1-0.6); MONO % 11.1 % (1.7-9.3); PLATELET COUNT 96 K/mm3 (130-400); RED BLOOD COUNT 4.01 M/mm3 (4.20-5.60); REDCELL DISTRIBUTION WIDTH-CV 14.5 % (11.5-14.5)
[2018-10-26 22:06] LABS: ALBUMIN 4.5 gm/dL (3.5-5.0); BILIRUBIN,TOTAL 0.6 mg/dL (0.0-1.0); CALCIUM 9.7 mg/dL (8.4-10.2); CREATININE, serum 12.93 mg/dL (0.66-1.25); MAGNESIUM 2.9 mg/dL (1.6-2.3); PHOSPHOROUS 8.1 mg/dL (2.5-4.5); TOTAL PROTEIN 7.1 gm/dL (6.4-8.2)
[2018-10-26] MEDS ORDERED: ALDACTONE 25MG25 M1 PO (22:38)
[2018-10-27] VITALS (8 sets, daily range): BP systolic 171–212; BP diastolic 89–110; PULSE 87–103; TEMP 98.2–99.5
--- NOTE | 2018-10-27 00:15 | NUR ---
Patient arrived to floor from ED at approximately 0005. Patient is alert and oriented, is dysphasic, but able to answer questions appropriately. at bedside. Recieved TORB from Dr. Garcia to restart insulin pump and initiate ACHS accuchecks. Patient denies pain, nausea, or further needs at this time, call light within reach.
--- NOTE | 2018-10-27 06:41 | NUR ---
Patient rested well overnight. Patient up with x1 assist and walker to bathroom where he had a large, dark, loose stool. Patient denies nausea or further needs at this time, call light within reach.
--- NOTE | 2018-10-27 07:57 | NUR ---
Pt is A/Ox4, sitting on the side of the bed working on eating breakfast. He states he is experiencing the chronic pain to his right eye, rates pain a 4-5/10. Denies any need for pain medication at this time. Saline lock to right hand is free of complications. Fistula to left arm noted. Pt is up to the restroom at this time, SBA with walker. Pt reports having small bowel movement. Bowel sounds are active x4. at bedside, pt denies any needs.
[2018-10-27 08:15] LABS: ALBUMIN 4.2 gm/dL (3.5-5.0); CALCIUM 9.5 mg/dL (8.4-10.2); PHOSPHOROUS 8.3 mg/dL (2.5-4.5)
[2018-10-27 08:26] LABS: CREATININE, serum 13.58 mg/dL (0.66-1.25); POTASSIUM 6.3 mmol/L (3.4-5.0)
--- NOTE | 2018-10-27 09:34 | NUR ---
Pt to dialysis. Pt requested PRN oxicodone prior to leaving which was given. Pt denies pain at this time, but states he has increased pain while being dialized.
--- NOTE | 2018-10-27 12:07 | NUR ---
Patient lives at home with his (Sami) in [place], [place] and plans to return home upon discharge possibly later this day after testing. Patient is semi independent with daily living activities as he does bath himeself and care for his hygiene but his helps with cooking, cleaning, and driving activities. Patient uses a walker for mobility assistance, his primary care physician is Dr. Kvng Grullon, his [facility] is [facility] and he does not currently have advance directives completed but is in the process of completing with his energy attorney. No further needs at this time.
--- NOTE | 2018-10-27 13:30 | NUR ---
Pt returned to floor from dialysis. He states he is having a headache and nausea. PRN zofran and tylenol given. Pt's bp also elevated, given PRN apresoline. Pt continues to rest in bed, denies any other needs.
--- NOTE | 2018-10-27 23:03 | NUR ---
PT BEDRESTS WITH EYES CLOSED, RESP EVEN. IS LONGING ON THE DIVAN. SHE STATED THAT SHE NEEDED TO GO TO WORK IN THE AM SO SHE ISN'T STAYING TONIGHT/. ACCUCHECK WAS 154, GOT 2 UNITS S\S NOVOLOG. THE PT HAS HIS INSULIN PUMP ON. HE RATED HIS PAIN AT A 4\10 ACROSS FOREHEAD AND RIGHT EYE. VERBALIZED OF SURGERY VIA [facility]ER ON SUNDAY. PT ASKED IF I WOULD RECHECK HIS ACCUCHECK IN THE NIGHT, AGREED THAT I WOULD. B\P RUNNING HIGH, PRN APPRESSOLINE GIVEN. APPEARS TO REST WITH EYES CLOSED, RESP EVEN.
[2018-10-28 00:40] VITALS: BP 193/105; PULSE 101; TEMP 99.1
--- NOTE | 2018-10-28 00:44 | NUR ---
B\P CONTINUES TO BE ELEVATED. ACCUCHECK DONE 133, DECLINED A SNACK.
[2018-10-28 04:24] VITALS: BP 188/100; PULSE 99; TEMP 98.6
--- NOTE | 2018-10-28 04:38 | NUR ---
THE PT WAS BEDRESTING, AROUSED EASILY FOR VS CHECK. B\P CONTINUES ELEVATED.
--- NOTE | 2018-10-28 06:23 | NUR ---
am accucheck is 147, pleasant. sat up to take his Reglan. pleasant stated pain is a 2.
[2018-10-28 07:12] LABS: ALBUMIN 4.1 gm/dL (3.5-5.0); CALCIUM 9.4 mg/dL (8.4-10.2); PHOSPHOROUS 7.3 mg/dL (2.5-4.5); POTASSIUM 4.7 mmol/L (3.4-5.0)
[2018-10-28 07:14] LABS: CREATININE, serum 10.08 mg/dL (0.66-1.25)
[2018-10-28 08:18] VITALS: BP 168/105; PULSE 96; TEMP 99.1
[2018-10-28 11:07] VITALS: BP 164/87; PULSE 96; TEMP 99.2
--- NOTE | 2018-10-28 11:46 | NUR ---
SW discussed patient with dr reich who feels that patient could dc this afternoon or tomorrow.
[2018-10-28 15:41] VITALS: BP 160/89; PULSE 90; TEMP 99.2
--- NOTE | 2018-10-28 16:03 | NUR ---
ANA met with patient and to discuss readmission. Patient was discharged from Medical on 10/11/18 home with outpatient therapy. Dr Garcia did not do outpatient PT/ST orders however ANA got orders from [facility] the following week and sent them to [facility]. Their first appointment was set for tomorrow, 10/29/18. Patient and his report they were doing well at home and that physcially patient was able to do his ADLs and get around independently. They were going to dialysis appointments as schedueled and have no concerns about that. Patients is going to call [facility] and reschedule his appointment as he is discharging tomorrow at the earliest. ANA spoke with [facility] as well and faxed them some additional PT/OT notes from his [facility] stay. ANA will continue to follow and assist in any discharge needs that may arise.
[2018-10-28] MEDS ORDERED: CATAPRES-TTS 20.2 M1 TD (17:13)
--- NOTE | 2018-10-28 18:52 | NUR ---
Discharge instructions reviewed with patient and spouse, verbalized understanding. Discharged via wheelchair to auto/home with family at 1845.
== END 2018-10-28 18:45 | disposition home or self-care (01) | DRG 73 ==
LOC: COL.ER 21:16 → SURG 22:48
PROVIDERS: Emergency Medicine; ADMIT Internal Medicine Nephrology
PROC: 5A1D70Z Performance of Urinary Filtration, Intermittent, Less than 6 Hours Per Day (ICD-10-PCS; principal; 2018-10-27)
DX: E11.43 Type 2 diabetes mellitus with diabetic autonomic (poly)neuropathy (principal); N18.6 End stage renal disease; I12.0 Hypertensive chronic kidney disease with stage 5 chronic kidney disease or end stage renal disease; N25.81 Secondary hyperparathyroidism of renal origin; I16.1 Hypertensive emergency; K31.84 Gastroparesis; E87.5 Hyperkalemia; E11.22 Type 2 diabetes mellitus with diabetic chronic kidney disease; Z99.2 Dependence on renal dialysis; D63.1 Anemia in chronic kidney disease; E83.39 Other disorders of phosphorus metabolism; Z86.73 Personal history of transient ischemic attack (TIA), and cerebral infarction without residual deficits
CPT/HCPCS: J0360; J0610; J1815; J2405; J2765

== ENCOUNTER 2018-12-17 00:37 | Inpatient (IN) | payer MEDICARE ==
[2018-12-17] VITALS (7 sets, daily range): BP systolic 160–185; BP diastolic 81–98; PULSE 102–117; TEMP 98.4–100.9
[~2018-12-17] VITALS: Ht 177.8 cm; Wt 73.7 kg
[~2018-12-17 00:37] MED LIST changes: +CATAPRES-TTS 20.2 M1 TD
[2018-12-17 01:10] LABS: BASO % 0.2 % (0.0-2.0); EOS # 0.1 (0.0-0.7); EOS % 1.5 % (0-4.0); GRAN # 3.8 (1.4-6.5); GRAN % 72.5 % (42.2-75.2); LYMPH # 0.9 (1.2-3.4); LYMPH % 16.7 % (20.0-51.0); MEAN CELL VOLUME 88 fl (80.0-100.0); MEAN CORPUSCULAR HGB CONC 34 g/dl (33.0-37.0); MEAN PLATELET VOLUME 8.5 fl (7.4-10.4); MONO # 0.4 (0.1-0.6); MONO % 8.3 % (1.7-9.3); PLATELET COUNT 70 K/mm3 (130-400); RED BLOOD COUNT 1.69 M/mm3 (4.20-5.60); REDCELL DISTRIBUTION WIDTH-CV 12.7 % (11.5-14.5)
[2018-12-17 01:13] LABS: MEAN CORPUSCULAR HEMOGLOBIN 30 pg (27.0-31.0)
[2018-12-17 01:14] LABS: HEMATOCRIT 14.9 % (42.0-52.0)
[2018-12-17 01:24] LABS: ALBUMIN 3.7 gm/dL (3.5-5.0); BILIRUBIN,TOTAL 0.5 mg/dL (0.0-1.0); CALCIUM 8.7 mg/dL (8.4-10.2); CREATININE, serum 6.39 mg/dL (0.66-1.25); MAGNESIUM 2.4 mg/dL (1.6-2.3); PHOSPHOROUS 3.6 mg/dL (2.5-4.5); POTASSIUM 3.8 mmol/L (3.4-5.0); TOTAL PROTEIN 5.8 gm/dL (6.4-8.2)
[2018-12-17] MEDS ORDERED: HYTRIN 5MG C5 MG/CAP PO (03:21)
[2018-12-17] MEDS ORDERED: DIAMOX 250MG250 MG PO (03:29)
[2018-12-17] MEDS ORDERED: MINOXIDIL 2.5 PO (03:34)
--- NOTE | 2018-12-17 05:12 | NUR ---
pt came to unit at 0330. no c/o pain, SOA. reports black stool, and feeling constipated. Blood sugar 64, pt reports feeling shaky, given grape juice. pt complection- pale. waiting for unit of blood- hgb 5.0. bp 185/96. lungs clear. Fistula- thrill and bruit are present. pt reports decreased output since dialysis. pt reports restless legs for past days- "my legs keep me from sleeping." PT on room air. IV is clean, dry, no redness, no swelling. pt reports no needs at this time. will continue to monitor. call light inreach
--- NOTE | 2018-12-17 05:20 | NUR ---
pt A+Ox4, resting with at bedside. no pain. no needs at this time
[2018-12-17 06:56] LABS: HEMATOCRIT 15.4 % (42.0-52.0)
--- NOTE | 2018-12-17 07:21 | NUR ---
report given to ANTHONY Osborn. pt denied needs
--- NOTE | 2018-12-17 08:30 | NUR ---
Assessment complete. Pt sitting up in bed, drowsy but alert, oriented x 3. Breath sounds clear but diminished to bases bilat. BS active x 4, abd distended. Pt reports intermittent pain to right abd, not rating on pain scale at this time. Saline lock IV to right hand without s/s of complications. AV Fistula to left arm with strong thrill to palpation. POC reviewed with pt and pt's . No further needs reported. Call light in reach.
[2018-12-17 09:10] LABS: RETIC # 0.04 M/mm3 (0.02-0.16); RETIC % 2.3 % (0.5-3.52)
--- NOTE | 2018-12-17 09:25 | NUR ---
Pt to [facility] unit for dialysis via .
[2018-12-17 09:27] LABS: IRON,SERUM 31 ug/dL (35-150); LACTATE DEHYDROGENASE 507 U/L (313-618)
[2018-12-17 09:36] LABS: TOTAL IRON BINDING CAPACITY 200 ug/dL (261-462)
[2018-12-17 10:03] LABS: FERRITIN 442 ng/mL (18-464)
--- NOTE | 2018-12-17 10:55 | NUR ---
Dialysis nurse calls and reports pt with increased jitters, c/o restless legs. PRN pain medication and sched Neurontin taken down to pt.
--- NOTE | 2018-12-17 13:45 | NUR ---
Pt back to room from dialysis reports nausea and an episode of emesis. Pt's says pt has had this reaction to Roxicodone at home which was administered previously. PRN Zofran administered per orders and request.
--- NOTE | 2018-12-17 14:59 | NUR ---
RA SP02 88% PALCED PT ON 1 LPM NC 91%. ANTHONY HOLLAND NOTIFIED
--- NOTE | 2018-12-17 16:37 | NUR ---
SW met with patient to discuss discharge planning. [place] lives with [place] Marium [place]. his pcp is Dr Garcia and he obtains his medications from [facility] in [place]. SW will continue to follow for any discharge needs.
--- NOTE | 2018-12-17 18:43 | NUR ---
Pt has another episode of emesis after eating, describes as undigested food. Pt reports slight feeling of constipation. Doctor notified.
--- NOTE | 2018-12-17 19:42 | NUR ---
pt o2 sat 88% on 0.5L increased to 2.5L pt sat 91%. will continue to monitor. pt reports no N/V at this time.
--- NOTE | 2018-12-17 22:59 | NUR ---
PT REPORTS FEELING INCREASED WEAKNESS THROUGHOUT DAY. INCREASED SOA. PT NOW ON 5L VIA NC O2 SAT AT 90-91%. PT PALE. SHIFT ASSESSMENT COMPLETE. PT BLOOD PRESSURE 171/98. TACHYCARDIA-117. BLOOD TRANSFUSING NOW. PT REPORTS NO S/S OF REACTIONS. NURSE IN ROOM FOR 15 MIN. WILL CONTINUE TO MONITOR. NO NEEDS AT THIS TIME. CALL LIGHT INREACH
[2018-12-18] VITALS (13 sets, daily range): BP systolic 150–185; BP diastolic 80–99; PULSE 96–116; TEMP 99–102.4
--- NOTE | 2018-12-18 01:47 | NUR ---
pt temp before blood transfusion 98.7. hour into administration 99.7. temp now is 102.4. called Dr. Grullon- reports to contiue adminitration of blood. added blood cultures x2 and CBC with diff with morning labs. pt reports no change, no rash noted. other vitals unchanged. pt resting in bed with at bedside. no needs at this time. call light in reach
--- NOTE | 2018-12-18 02:55 | NUR ---
STARTED PT SECOND UNIT OF BLOOD. TEMP WHEN STARTED 99.5. PULSE 116 RR 12 BP 179/97 AND O2 93%. PT REPORTS NO PAIN. NURSE WILL STAY IN ROOM FOR 15 MINS AND THEN AFTER MONITOR. NO NEEDS, CALL LIGHT IN REACH
--- NOTE | 2018-12-18 04:20 | NUR ---
STARTED BLOOD AT 50 ML /HR. BUMPED RATE TO 120 ML/HR AFTER FIRST HOUR. REPORTS NO S/S OF REACTION. TEMP ELEVATED. CONSTANTINE NOTIFIED
[2018-12-18 05:05] LABS: HAPTOGLOBIN 81 mg/dL (36-195)
[2018-12-18 05:07] LABS: TRANSFERRIN 119 mg/dL (180-329)
--- NOTE | 2018-12-18 05:23 | NUR ---
pt recieved one unit of blood, second unit is being administered currently. pt reports no chills, rash, itching, or abnormal feeling. pt reports feeling a little better since blood started. pt pale, slow movements. temp flucuates 98.7-102.4, other vitals consistant: Dr Grullon notified- stated to continue infusion, blood cultures ordered x2, CBC with diff ordered. this nurse decreased O2 from 5L to 4L pt sat at 93%. pt reports no N/V- given food, tolerated well. no needs at this time. call light in reach.
--- NOTE | 2018-12-18 05:55 | NUR ---
SECOND UNIT OF BLOOD TRANSFUSED. PT REPORTS NO S/S OF REACTION. RESTING NOW. NO NEEDS. CALL LIGHT IN REACH
--- NOTE | 2018-12-18 07:26 | NUR ---
report given to ANTHONY Hinojosa.
--- NOTE | 2018-12-18 07:30 | NUR ---
Pt is sleeping soundly in bed, resp. are even and unlabored on 4L O2 per NC. is sleeping at bedside.
--- NOTE | 2018-12-18 09:13 | NUR ---
Pt is awake and A/Ox4, resting in bed. He states he feels "a little better" this morning. He denies pain at this time. Saline lock to right hand is free of complications. Fistula to left upper arm noted. Pt ate 100% of breakfast without difficulty, denies N/V at this time. Neuro checks unremarkable. at bedside, denies any needs.
[2018-12-18 09:30] LABS: BASO % 0.4 % (0.0-2.0); EOS # 0.1 (0.0-0.7); EOS % 1.1 % (0-4.0); LYMPH # 1.5 (1.2-3.4); LYMPH % 20.4 % (20.0-51.0); MEAN CELL VOLUME 87 fl (80.0-100.0); MEAN CORPUSCULAR HGB CONC 35 g/dl (33.0-37.0); MEAN PLATELET VOLUME 8.6 fl (7.4-10.4); MONO # 0.6 (0.1-0.6); MONO % 8.3 % (1.7-9.3); PLATELET COUNT 98 K/mm3 (130-400); RED BLOOD COUNT 2.19 M/mm3 (4.20-5.60)
[2018-12-18 09:40] LABS: ALBUMIN 3.7 gm/dL (3.5-5.0); CALCIUM 8.9 mg/dL (8.4-10.2); PHOSPHOROUS 3.1 mg/dL (2.5-4.5); POTASSIUM 4.1 mmol/L (3.4-5.0)
[2018-12-18 09:45] LABS: HEMATOCRIT 19.1 % (42.0-52.0); HEMOGLOBIN 6.6 g/dl (13.5-18.0); MEAN CORPUSCULAR HEMOGLOBIN 30 pg (27.0-31.0)
[2018-12-18 10:01] LABS: CREATININE, serum 5.51 mg/dL (0.66-1.25)
--- NOTE | 2018-12-18 17:39 | NUR ---
Pt reports small amount of pink-tinged sputum. Low grade fevers 100.1. Dr. Grullon notified, orders for blood cultures x2, UA, sputum cx, and CXR. Pt and were updated on plan of care, expressed understanding.
--- NOTE | 2018-12-18 19:55 | NUR ---
Received call from Dr. Grullon. New orders are to make patient NPO at 0000, Decrease insulin pump rate to 0.5, and remain checking patient blood sugars ACHS and PRN, keep close eye on blood sugar level. Pump changed by patient, verified. Will monitor.
--- NOTE | 2018-12-18 20:45 | NUR ---
Resting in bed with at bedside. Assessment complete. Lungs clear. Heart sounds normal. INT to right hand flushes well. Fistula to left forearm bruit and thrill present. Denies pain at this time. Call light in reach. Will monitor.
--- NOTE | 2018-12-18 21:05 | NUR ---
NURSING OFFICER reports blood sugar level 468. Spoke with Dr. Grullon, order to give 6 units of novolog instead of 12 units per protocol and increase insulin pump to 0.8 units. Recheck blood sugar in one hour. Patient updated and changed insulin pump. Will monitor.
--- NOTE | 2018-12-18 21:25 | NUR ---
Report shortness of breath. Oxygen level 91%.. Increased oxygen to 6 liters from 5 liters. Instructed patient on breathing techniques and positioning. Oxygen saturation increased to 96%. Will monitor closely.
--- NOTE | 2018-12-18 22:20 | NUR ---
Blood sugar rechecked, 412. Per Dr. Poole increase insulin pump to 1 unit and recheck in 2 hours. Do not call if blood sugar decreasing and do not call regarding blood pressures. Updated patient, insulin pump changed. Will monitor. Encouraged patient to continue drinking bowel prep. Denies other needs.
[2018-12-19 00:13] VITALS: BP 172/92; PULSE 101; TEMP 99.2
--- NOTE | 2018-12-19 00:20 | NUR ---
Blood sugar 326. Will continue to monitor
[2018-12-20 08:00] VITALS: BP 167/95; PULSE 100; TEMP 98.6
[2018-12-20 12:00] VITALS: BP 157/88; PULSE 95; TEMP 98.9
[2018-12-20 13:44] LABS: BASO % 0.3 % (0.0-2.0); EOS # 0.1 (0.0-0.7); EOS % 1.8 % (0-4.0); GRAN # 4.4 (1.4-6.5); GRAN % 70.7 % (42.2-75.2); LYMPH # 1.2 (1.2-3.4); LYMPH % 18.5 % (20.0-51.0); MEAN CELL VOLUME 86 fl (80.0-100.0); MEAN CORPUSCULAR HEMOGLOBIN 30 pg (27.0-31.0); MEAN CORPUSCULAR HGB CONC 34 g/dl (33.0-37.0); MONO # 0.5 (0.1-0.6); MONO % 7.7 % (1.7-9.3); PLATELET COUNT 123 K/mm3 (130-400); RED BLOOD COUNT 2.03 M/mm3 (4.20-5.60); REDCELL DISTRIBUTION WIDTH-CV 12.8 % (11.5-14.5)
[2018-12-20 13:45] LABS: HEMATOCRIT 17.5 % (42.0-52.0)
[2018-12-20 14:30] LABS: CALCIUM 8.9 mg/dL (8.4-10.2); POTASSIUM 4.2 mmol/L (3.4-5.0)
[2018-12-20 14:31] LABS: CREATININE, serum 7.44 mg/dL (0.66-1.25)
--- NOTE | 2018-12-20 15:41 | NUR ---
pt awake,a/ox3.denies pain or discomfort at this time.breathing even and unlabored.LSCTA.oxygen at 4L/NC.NSR per telemetry.VSS.all med given.patient denies abd pain.INT to RFA.LFA fistula.bruit palpated and thrill pounding.pt has been up with therapy.no needs voiced at this time.will continue to monitor.Blood sugar have been stable.call light in reach
[2018-12-20 17:05] VITALS: BP 163/91; PULSE 90; TEMP 98.3
[2018-12-20 17:57] LABS: MEAN CELL VOLUME 88 fl (80.0-100.0); MEAN CORPUSCULAR HGB CONC 34 g/dl (33.0-37.0); MEAN PLATELET VOLUME 9.1 fl (7.4-10.4); PLATELET COUNT 130 K/mm3 (130-400); RED BLOOD COUNT 1.94 M/mm3 (4.20-5.60); REDCELL DISTRIBUTION WIDTH-CV 13.1 % (11.5-14.5)
[2018-12-20 17:58] LABS: ALBUMIN 3.3 gm/dL (3.5-5.0); CALCIUM 8.8 mg/dL (8.4-10.2); PHOSPHOROUS 3.4 mg/dL (2.5-4.5); POTASSIUM 4.5 mmol/L (3.4-5.0)
[2018-12-20 18:01] LABS: CREATININE, serum 6.75 mg/dL (0.66-1.25)
[2018-12-20 18:12] LABS: HEMOGLOBIN 5.8 g/dl (13.5-18.0); MEAN CORPUSCULAR HEMOGLOBIN 30 pg (27.0-31.0)
[2018-12-20 18:13] LABS: HEMATOCRIT 17.1 % (42.0-52.0)
--- NOTE | 2018-12-20 18:45 | NUR ---
Pt sitting with at bedside. HGB was 5.[address] Grullon here and rounding on patient. Blood sugars remain stable. Remains on 02 at 4l NC. Pt ambulated with PT. Denies any needs at this time. Call light in reach
[2018-12-20 18:59] VITALS: BP 143/84; PULSE 83; TEMP 97.7
[2018-12-21] VITALS (15 sets, daily range): BP systolic 150–196; BP diastolic 90–116; PULSE 83–97; TEMP 97.8–99.7
--- NOTE | 2018-12-21 01:58 | NUR ---
Patient resting in bed with eyes closed at this time. Call light is within reach. Denied having pain and discomfort when asked. at bedside. INT to right hand. AV fistula to left forearm. Gauze dressing CDI. Positive bruit and thrill. Denies feelings of dizzyness and lightheadedness.
--- NOTE | 2018-12-21 03:08 | NUR ---
Resting in bed with eyes closed at this time. Voices no needs or concerns at this time. Has been denying having pain and discomfort. Call light is within reach.
--- NOTE | 2018-12-21 06:02 | NUR ---
Patient has been resting in bed with eyes closed most of the night. Denies having any pain or discomfort. Continues on oxygen at 3 L/min via NC. Elevated BPs continue, most recent . Dr. Grullon is aware of HTN, and has an order to not call to notify him. Denies having dizzyness, and chest pain. Resting in bed with eyes closed at this time. at bedside. Call light is within reach.
--- NOTE | 2018-12-21 09:00 | NUR ---
Patient resting in bed at this time, at bedside. Patient is alert and oriented, answers questions appropriately. O2 continues at 3L via NC. Patient requests some crackers, stating that he feels his blood sugar is dropping. Patient denies further needs, requests to be informed of what time dialysis will be this morning. Call light within reach.
--- NOTE | 2018-12-21 11:30 | NUR ---
Patient to dialysis via wheelchair. Patient denies pain or nausea, blood glucose checked prior to dialysis.
[2018-12-21 11:57] LABS: RETIC # 0.09 M/mm3 (0.02-0.16); RETIC % 4.4 % (0.5-3.52)
[2018-12-21 11:59] LABS: BASO % 0.5 % (0.0-2.0); EOS # 0.1 (0.0-0.7); GRAN # 2.1 (1.4-6.5); GRAN % 57.9 % (42.2-75.2); LYMPH # 1.1 (1.2-3.4); LYMPH % 30.4 % (20.0-51.0); MEAN CELL VOLUME 87 fl (80.0-100.0); MEAN CORPUSCULAR HGB CONC 34 g/dl (33.0-37.0); MEAN PLATELET VOLUME 8.7 fl (7.4-10.4); MONO # 0.3 (0.1-0.6); MONO % 7.1 % (1.7-9.3); PLATELET COUNT 141 K/mm3 (130-400); RED BLOOD COUNT 1.95 M/mm3 (4.20-5.60); REDCELL DISTRIBUTION WIDTH-CV 13.2 % (11.5-14.5)
[2018-12-21 12:06] LABS: HEMOGLOBIN 5.8 g/dl (13.5-18.0); MEAN CORPUSCULAR HEMOGLOBIN 30 pg (27.0-31.0)
[2018-12-21 12:07] LABS: HEMATOCRIT 16.9 % (42.0-52.0)
[2018-12-21 12:11] LABS: ALBUMIN 3.4 gm/dL (3.5-5.0); CALCIUM 8.6 mg/dL (8.4-10.2); PHOSPHOROUS 3.8 mg/dL (2.5-4.5); POTASSIUM 4.3 mmol/L (3.4-5.0)
[2018-12-21 12:19] LABS: CREATININE, serum 6.5 mg/dL (0.66-1.25)
--- NOTE | 2018-12-21 15:00 | NUR ---
Patient arrives back to floor via wheelchair from dialysis. Patient states he is hungry, requests a sandwich. No sandwich boxes on the floor, called kitchen and ordered a sandwich for patient. Patient denies further needs at this time, call light within reach.
--- NOTE | 2018-12-21 20:40 | NUR ---
Shift assessment complete. Patient lying in bed, at bedside. Denies pain. Last unit PRBC's infusing. No s/s of reaction to transfusion.
--- NOTE | 2018-12-21 22:06 | NUR ---
Unit 2 PRBC's infusing, no issues noted during first 15 minutes. VS stable. Infusion increased to 100 ml/hr. Will continue to assess.
--- NOTE | 2018-12-21 22:38 | NUR ---
Right hand noted to be swollen/tender during IV assessment. PRBC's paused, IV flushed. Patient states, IV is tender. IV appears to be infiltrated. PRBC's put on hold, will remove IV and start new line.
--- NOTE | 2018-12-21 23:13 | NUR ---
New IV placed by Nayan Menezes. PRBC's infusion restarted, VS stable. Will continue to assess.
[2018-12-22 00:54] VITALS: BP 185/101; PULSE 93; TEMP 98.6
--- NOTE | 2018-12-22 00:57 | NUR ---
Patient in bed, sleeping. at bedside. PRBC's infusing, no s/s reaction, IV patent. VS stable. Will continue to monitor.
[2018-12-22 01:38] VITALS: BP 195/97; PULSE 93; TEMP 99.2
--- NOTE | 2018-12-22 01:43 | NUR ---
2nd unit PRBC's complete, no s/s reaction. VS stable. IV flushed, patent, saline locked. Patient sleeping, at bedside. Will continue to assess.
--- NOTE | 2018-12-22 04:25 | NUR ---
Patient in bed, sleeping. Appears comfortable. Will continue to monitor.
[2018-12-22 06:26] LABS: BASO % 0.7 % (0.0-2.0); EOS # 0.1 (0.0-0.7); EOS % 2.4 % (0-4.0); GRAN # 2.7 (1.4-6.5); GRAN % 59.1 % (42.2-75.2); LYMPH # 1.1 (1.2-3.4); LYMPH % 23.6 % (20.0-51.0); MEAN CELL VOLUME 87 fl (80.0-100.0); MEAN CORPUSCULAR HGB CONC 34 g/dl (33.0-37.0); MEAN PLATELET VOLUME 8.7 fl (7.4-10.4); MONO # 0.5 (0.1-0.6); MONO % 11.8 % (1.7-9.3); PLATELET COUNT 182 K/mm3 (130-400); RED BLOOD COUNT 2.71 M/mm3 (4.20-5.60); REDCELL DISTRIBUTION WIDTH-CV 13.5 % (11.5-14.5)
[2018-12-22 06:36] LABS: ALBUMIN 3.4 gm/dL (3.5-5.0); PHOSPHOROUS 4.2 mg/dL (2.5-4.5); POTASSIUM 4.5 mmol/L (3.4-5.0)
[2018-12-22 06:41] LABS: CREATININE, serum 5.73 mg/dL (0.66-1.25)
[2018-12-22 06:43] LABS: HEMATOCRIT 23.6 % (42.0-52.0); MEAN CORPUSCULAR HEMOGLOBIN 30 pg (27.0-31.0)
--- NOTE | 2018-12-22 09:45 | NUR ---
Patient alert and oriented, answers questions appropriately. See assessment. No c/o at this time.
[2018-12-22 13:00] VITALS: BP 167/99; PULSE 92; TEMP 99
[2018-12-22 16:31] VITALS: BP 164/89; PULSE 99; TEMP 98.1
[2018-12-22 19:45] VITALS: BP 179/96; PULSE 89; TEMP 98.3
[2018-12-23 00:45] VITALS: BP 190/102; BP 195/103; PULSE 94; TEMP 98.3
--- NOTE | 2018-12-23 01:37 | NUR ---
Patient assessed around 2100. Alert and oriented and able to make needs known. Denies having any pain or discomfort. LS CTA. Respirations even and unlabored. While assessed, patient was on room air. Denied having SOB and dyspnea. No nasal flaring or pursed lip breathing noted. Heart with regular rate and rhythm. Capillary refill is less than 3 seconds. Non-tenting skin turgor. No edema noted. Pedal and radial pulses present and equal bilaterally. AV fistula to left forearm with positive bruit and thrill. Site is without redness, warmth, drainage, and swelling. No dressing to area. INT to right hand patent. Site is without redness, warmth, and swelling. Bowel sounds active x 4. Abdomen is soft and non-tender. Resting in bed with eyes closed at this time. Call light is within reach.
[2018-12-23 05:08] VITALS: BP 194/98; PULSE 95; TEMP 98.3
--- NOTE | 2018-12-23 08:31 | NUR ---
Assessment completed prior to going down for diaylsis, he is alert/oriented, vital signs have been stable/ he continues to run HTN and Dr. Grullon is aware and has put in order for nursing staff not to call him with high blood pressure values or low blood counts, patient denies pain or discomfort this morning and reports feeling better today than he has been, heart RRR/ distal pulses are palpable, left arm fistula +bruit/thrill, lungs CTA/ no respd.ifficulty, last hemaglobin was 8, he has had breakfats and Novolog 4 units given/ will give other morning meds after dialysis tx, I have taken him to ICU 18 for dialysis at 0810, dialysis nurse present in the room when we arrived
[2018-12-23 08:34] LABS: MEAN CELL VOLUME 86 fl (80.0-100.0); MEAN CORPUSCULAR HGB CONC 34 g/dl (33.0-37.0); MEAN PLATELET VOLUME 8.3 fl (7.4-10.4); PLATELET COUNT 154 K/mm3 (130-400); RED BLOOD COUNT 2.77 M/mm3 (4.20-5.60); REDCELL DISTRIBUTION WIDTH-CV 14.1 % (11.5-14.5)
[2018-12-23 08:38] LABS: HEMATOCRIT 23.9 % (42.0-52.0); MEAN CORPUSCULAR HEMOGLOBIN 29 pg (27.0-31.0)
[2018-12-23 08:44] LABS: ALBUMIN 3.4 gm/dL (3.5-5.0); CALCIUM 8.9 mg/dL (8.4-10.2); PHOSPHOROUS 5.3 mg/dL (2.5-4.5); POTASSIUM 5.1 mmol/L (3.4-5.0)
[2018-12-23 08:47] LABS: CREATININE, serum 7.57 mg/dL (0.66-1.25)
[2018-12-23 09:43] LABS: BAND 8 % (0-10); EOSINOPHIL 4 % (0-4); LYMPHOCYTE 20 % (20.0-51.0); METAMYELOCYTE 1 % (0-0); NEUTROPHILS 61 % (42.0-75.2)
[2018-12-23 09:45] LABS: PLATELET ESTIMATE NORMAL (NORMAL)
[2018-12-23 09:46] LABS: ANISOCYTOSIS 1+; HYPOCHROMIA 1+
[2018-12-23 11:22] LABS: IEPS TP 5.3 g/dL (6.1-7.7); IMMUNOGLOBULIN A 106 mg/dL (63-484); IMMUNOGLOBULIN G 506 mg/dL (540-1822)
[2018-12-23 13:41] VITALS: BP 183/94; PULSE 90; TEMP 98.8
[2018-12-23 15:38] LABS: ALBUMIN FRACTION 3.4 g/dL (2.6-4.5); ALBUMIN PERCENT 63.9 % (48.7-61.8); ALPHA 1 FRACTION 0.4 g/dL (0.3-0.5); ALPHA 1 PERCENT 6.9 % (3.4-8.3); ALPHA 2 FRACTION 0.6 g/dL (0.6-1.2); ALPHA 2 PERCENT 11.2 % (8.4-17.5); BETA 1 FRACTION 0.3 g/dL (0.4-0.6); BETA 1 PERCENT 5.1 % (5.4-8.9); BETA 2 FRACTION 0.2 g/dL (0.2-0.5); BETA 2 PERCENT 3.6 % (3.8-7.7); IEPS GAMMA FRACTION 0.5 g/dL (0.4-1.7); IEPS GAMMA PERCENTAGE 9.3 % (8.1-23.0); IMMUNOGLOBULIN M, QUANTITATIVE 65 mg/dL (22-240)
--- NOTE | 2018-12-23 15:41 | NUR ---
SW met with patient and to present IM and verbally discuss the contents. Patient and were agreeable and signed the form. Copy denied and original placed on chart. Patient is dc home today with and outpatient therapy at [facility]. No other needs identified.
[2018-12-23 16:21] VITALS: BP 164/98; PULSE 92; TEMP 98.8
[2018-12-23] MEDS ORDERED: NEURONTIN100 MG/CAP PO (16:40)
--- NOTE | 2018-12-23 17:04 | NUR ---
Discharge instructions reviewed with the patient and his significnt other, instructed to resume [facility] dialysis schedule starting on sunday, prescription provided for Neuronting and education reviewed, IV removed, I personally escorted them out to their vehicle
[2018-12-24 17:27] LABS: KAPPA FREE LIGHT CHAIN-SERUM 19.1 mg/dL (()); LAMDA FREE LIGHT CHAIN SERUM 7.72 mg/dL (())
[2018-12-26 19:37] LABS: COLD AGGLUTININS XXX
[2018-12-26 19:40] LABS: IEPS IGA SEE PCI FOR RESULTS; IEPS IGG SEE PCI FOR RESULTS; IEPS IGM SEE PCI FOR RESULTS
== END 2018-12-23 17:05 | disposition home or self-care (01) | DRG 811 ==
LOC: COL.ER 00:37 → MEDICAL 02:21
PROVIDERS: Emergency Medicine; Internal Medicine Gastroenterology; ADMIT Internal Medicine Nephrology
PROC: 5A1D70Z Performance of Urinary Filtration, Intermittent, Less than 6 Hours Per Day (ICD-10-PCS; principal; 2018-12-17)
PROC: 0DB68ZX Excision of Stomach, Via Natural or Artificial Opening Endoscopic, Diagnostic (ICD-10-PCS; 2018-12-19)
PROC: 0DJD8ZZ Inspection of Lower Intestinal Tract, Via Natural or Artificial Opening Endoscopic (ICD-10-PCS; 2018-12-19)
PROC: 5A1D70Z Performance of Urinary Filtration, Intermittent, Less than 6 Hours Per Day (ICD-10-PCS; 2018-12-19 13:00)
PROC: 5A1D70Z Performance of Urinary Filtration, Intermittent, Less than 6 Hours Per Day (ICD-10-PCS; 2018-12-21)
DX: D64.9 Anemia, unspecified (principal); N18.6 End stage renal disease; I12.0 Hypertensive chronic kidney disease with stage 5 chronic kidney disease or end stage renal disease; E87.79 Other fluid overload; E10.40 Type 1 diabetes mellitus with diabetic neuropathy, unspecified; E10.21 Type 1 diabetes mellitus with diabetic nephropathy; E10.319 Type 1 diabetes mellitus with unspecified diabetic retinopathy without macular edema; E10.22 Type 1 diabetes mellitus with diabetic chronic kidney disease; K21.0 Gastro-esophageal reflux disease with esophagitis; K29.30 Chronic superficial gastritis without bleeding; E10.43 Type 1 diabetes mellitus with diabetic autonomic (poly)neuropathy; K31.84 Gastroparesis; K29.80 Duodenitis without bleeding; Z99.2 Dependence on renal dialysis; D63.1 Anemia in chronic kidney disease; G25.81 Restless legs syndrome; D69.6 Thrombocytopenia, unspecified; Z79.4 Long term (current) use of insulin; Z96.41 Presence of insulin pump (external) (internal); Z86.73 Personal history of transient ischemic attack (TIA), and cerebral infarction without residual deficits
CPT/HCPCS: J0882; J1815; J2250; J2405; J2704; J2916; J3010; J7030; P9016

== ENCOUNTER 2018-12-26 18:48 | Emergency (ER) | payer MEDICARE ==
[~2018-12-26] VITALS: Ht 177.8 cm; Wt 70.5 kg
[~2018-12-26 18:48] MED LIST changes: +MINOXIDIL 2.5 PO; +NEURONTIN100 MG/CAP PO
[2018-12-26 18:57] VITALS: BP 161/84; TEMP 99.3
[2018-12-26 19:42] LABS: BASO % 0.8 % (0.0-2.0); EOS # 0.1 (0.0-0.7); EOS % 2.6 % (0-4.0); GRAN # 3.3 (1.4-6.5); LYMPH # 1.1 (1.2-3.4); LYMPH % 21.6 % (20.0-51.0); MEAN CELL VOLUME 93 fl (80.0-100.0); MEAN CORPUSCULAR HGB CONC 31 g/dl (33.0-37.0); MEAN PLATELET VOLUME 8.7 fl (7.4-10.4); MONO # 0.5 (0.1-0.6); MONO % 9.6 % (1.7-9.3); PLATELET COUNT 136 K/mm3 (130-400); REDCELL DISTRIBUTION WIDTH-CV 14.3 % (11.5-14.5)
[2018-12-26 19:45] LABS: HEMOGLOBIN 7.8 g/dl (13.5-18.0); MEAN CORPUSCULAR HEMOGLOBIN 29 pg (27.0-31.0)
[2018-12-26 19:48] LABS: PROTHROMBIN TIME 11.7 SECONDS (9.7-12.8)
[2018-12-26 20:05] LABS: ALBUMIN 3.7 gm/dL (3.5-5.0); BILIRUBIN,TOTAL 0.4 mg/dL (0.0-1.0); CALCIUM 8.9 mg/dL (8.4-10.2); POTASSIUM 4.3 mmol/L (3.4-5.0); TOTAL PROTEIN 6.1 gm/dL (6.4-8.2)
[2018-12-26 20:20] LABS: TROPONIN-I 0.033 ng/mL (0.000-0.035)
[2018-12-26 20:24] LABS: CREATININE, serum 6.32 mg/dL (0.66-1.25)
[2018-12-26] MEDS ORDERED: DOXYCYCLINE 10100 MG PO (22:12)
[2018-12-26 22:27] VITALS: PULSE 99
== END 2018-12-26 22:27 | disposition home or self-care (01) ==
LOC: COL.ER 18:48
PROVIDERS: Emergency Medicine
DX: E11.22 Type 2 diabetes mellitus with diabetic chronic kidney disease (principal); N18.6 End stage renal disease; I10 Essential (primary) hypertension; Z99.2 Dependence on renal dialysis; Z79.02 Long term (current) use of antithrombotics/antiplatelets

== ENCOUNTER 2019-01-14 20:18 | Emergency (ER) | payer MEDICARE ==
[~2019-01-14] VITALS: Ht 177.8 cm; Wt 70.0 kg
[~2019-01-14 20:18] MED LIST changes: +DOXYCYCLINE 10100 MG PO
[2019-01-14 20:38] VITALS: TEMP 98.7
[2019-01-14 21:26] LABS: BASO % 0.7 % (0.0-2.0); EOS # 0.2 (0.0-0.7); EOS % 3.9 % (0-4.0); GRAN # 2.7 (1.4-6.5); GRAN % 57.5 % (42.2-75.2); LYMPH # 1.2 (1.2-3.4); LYMPH % 25.9 % (20.0-51.0); MEAN CELL VOLUME 91 fl (80.0-100.0); MEAN CORPUSCULAR HGB CONC 33 g/dl (33.0-37.0); MONO # 0.5 (0.1-0.6); MONO % 10.9 % (1.7-9.3); PLATELET COUNT 107 K/mm3 (130-400); REDCELL DISTRIBUTION WIDTH-CV 15.5 % (11.5-14.5)
[2019-01-14 21:30] LABS: HEMATOCRIT 22.7 % (42.0-52.0); HEMOGLOBIN 7.5 g/dl (13.5-18.0); MEAN CORPUSCULAR HEMOGLOBIN 30 pg (27.0-31.0)
[2019-01-14 21:32] LABS: BILIRUBIN,TOTAL 0.5 mg/dL (0.0-1.0); POTASSIUM 4.7 mmol/L (3.4-5.0); TOTAL PROTEIN 6.3 gm/dL (6.4-8.2)
[2019-01-14 21:37] LABS: CREATININE, serum 8.73 mg/dL (0.66-1.25)
[2019-01-14 23:36] VITALS: BP 194/116; PULSE 86
== END 2019-01-14 23:37 | disposition home or self-care (01) ==
LOC: COL.ER 20:18
PROVIDERS: Emergency Medicine
DX: J81.1 Chronic pulmonary edema (principal); E87.70 Fluid overload, unspecified; I12.0 Hypertensive chronic kidney disease with stage 5 chronic kidney disease or end stage renal disease; N18.6 End stage renal disease; Z99.2 Dependence on renal dialysis; Z87.891 Personal history of nicotine dependence; Z79.02 Long term (current) use of antithrombotics/antiplatelets; Z79.4 Long term (current) use of insulin

== ENCOUNTER 2019-04-20 02:42 | Inpatient (IN) | payer MEDICARE, MEDICAID ==
[~2019-04-20] VITALS: Ht 177.8 cm; Wt 68.2 kg
[2019-04-20 03:26] LABS: BASO # 0.1 (0.0-0.2); BASO % 0.8 % (0.0-2.0); EOS # 0.2 (0.0-0.7); EOS % 1.6 % (0-4.0); GRAN # 8.7 (1.4-6.5); GRAN % 83.9 % (42.2-75.2); HEMATOCRIT 33.7 % (42.0-52.0); HEMOGLOBIN 10.9 g/dl (13.5-18.0); LYMPH # 0.7 (1.2-3.4); LYMPH % 6.6 % (20.0-51.0); MEAN CELL VOLUME 89 fl (80.0-100.0); MEAN CORPUSCULAR HEMOGLOBIN 29 pg (27.0-31.0); MEAN CORPUSCULAR HGB CONC 32 g/dl (33.0-37.0); MEAN PLATELET VOLUME 8.5 fl (7.4-10.4); MONO # 0.7 (0.1-0.6); MONO % 6.5 % (1.7-9.3); PLATELET COUNT 94 K/mm3 (130-400); RED BLOOD COUNT 3.79 M/mm3 (4.20-5.60); REDCELL DISTRIBUTION WIDTH-CV 14.4 % (11.5-14.5)
[2019-04-20 03:32] LABS: PROTHROMBIN TIME 11.5 SECONDS (9.7-12.8)
[2019-04-20 03:35] LABS: ALBUMIN 4.3 gm/dL (3.5-5.0); BILIRUBIN,TOTAL 0.9 mg/dL (0.0-1.0); CALCIUM 9.3 mg/dL (8.4-10.2); POTASSIUM 4.5 mmol/L (3.4-5.0); TOTAL PROTEIN 6.8 gm/dL (6.4-8.2)
[2019-04-20 03:36] LABS: CREATININE, serum 9.25 (0.66-1.25)
[2019-04-20 03:46] LABS: TROPONIN-I 0.015 ng/mL (0.000-0.035)
[2019-04-20 05:01] VITALS: BP 194/112; PULSE 94; TEMP 98.4
--- NOTE | 2019-04-20 06:45 | NUR ---
PT ARRIVED TO UNIT. BG 462. BP 217/117. BEDROS NOTIFIED. ORDERS GIVEN. HYDRALAZINE GIVEN. 10 UNITS OF NOVOLOG GIVEN. . BEDROS ORDERED HOME INSULIN PUMP TO STAY IN PLACE. IV FLUSHES WELL, NO REDNESS, NO SWELLING. PT HAS 2+ EDEMA IN BILAT LOWER EXTREMITIES. ACHS. REPORTS NO NEEDS AT THIS TIME. [address] CALL LIGHT IN REACH
--- NOTE | 2019-04-20 07:27 | NUR ---
report given to john lee
[2019-04-20 07:44] VITALS: BP 179/112; PULSE 92
--- NOTE | 2019-04-20 08:20 | NUR ---
Pt assessment complete. Pt is sitting up in bed he is A/O x3. His breathing is even and unlabored on 3L O2 via NC. Pt denies SOB. Pt currently denies pain. No N/V. He denies N/T. Pt reports being "tired" this am. No dizziness reported. POC discussed with patient who verbalizes understanding. No needs at this time. Call light within reach.
--- NOTE | 2019-04-20 12:34 | NUR ---
Plan: Plan is to return home with Marium Burton as care support. Assess: reports that they reside in [place]. transport client and helps with his basic needs. shares that the patient is using a walker everyday. Patient reports the use of [facility] on [address] for RXD. Denies having a DPOA. Patient rpeorts that they are looking for a new PCP and are currently seeing Dr. Grullon. Patient reports that he has not needed any home health or SNF. Action: ANA educated of services avail. to them, SW left a genric DPOA form for the patient to review. No additional needs at this time.
[2019-04-20 12:49] VITALS: BP 195/111; PULSE 87; TEMP 97.7
[2019-04-20 14:28] VITALS: BP 200/105; PULSE 94
[2019-04-20 16:26] VITALS: BP 207/108; PULSE 102; TEMP 98.3
--- NOTE | 2019-04-20 18:31 | NUR ---
Pt tolerated dialysis well today. Reported [place] earlier in the day, relieved with PRN Tylenol. BP remained elevated despite PRN and scheduled BP meds, Dr. Grullon aware and requests not to be called with BP readings. Pt states he feels "off" due to elevated sugars. Denies any pain at this time. Call light within reach. Will continue to monitor.
[2019-04-20 19:56] VITALS: BP 195/109; PULSE 88; TEMP 99
--- NOTE | 2019-04-20 21:00 | NUR ---
PT RESTING IN BED A+OX4. PT RIGTH EYE IS BRUISED. LEFT ARM FISTULA- BRUIT aND THRILL NOTED. BG 455- DR FITCH NOTIFIED. 10 UNITS GIVEN. IV FLUSHES WELL, NO SWELLING NO REDNESS. SLIGHT SWELLING IN BILAT LEGS. SHIFT ASSESSMENT COMPLETE- LUNGS CLEAR. PT REPORTS NO PAIN. NO NEED AT THIS TIME. CALL LIGHT IN REACH .
[2019-04-21] VITALS (7 sets, daily range): BP systolic 149–192; BP diastolic 85–101; PULSE 72–86; TEMP 97.7–98.6
[2019-04-21 05:56] LABS: BASO # 0.1 (0.0-0.2); BASO % 1.1 % (0.0-2.0); EOS # 0.3 (0.0-0.7); EOS % 4.6 % (0-4.0); GRAN # 3.9 (1.4-6.5); HEMOGLOBIN 10.7 g/dl (13.5-18.0); LYMPH # 1.6 (1.2-3.4); LYMPH % 24.5 % (20.0-51.0); MEAN CELL VOLUME 87 fl (80.0-100.0); MEAN CORPUSCULAR HEMOGLOBIN 29 pg (27.0-31.0); MEAN CORPUSCULAR HGB CONC 33 g/dl (33.0-37.0); MEAN PLATELET VOLUME 9.3 fl (7.4-10.4); MONO # 0.6 (0.1-0.6); MONO % 9.5 % (1.7-9.3); PLATELET COUNT 95 K/mm3 (130-400); RED BLOOD COUNT 3.67 M/mm3 (4.20-5.60); REDCELL DISTRIBUTION WIDTH-CV 14.2 % (11.5-14.5)
[2019-04-21 06:08] LABS: ALBUMIN 3.8 gm/dL (3.5-5.0); CALCIUM 9.2 mg/dL (8.4-10.2); PHOSPHOROUS 4.9 mg/dL (2.5-4.5); POTASSIUM 3.9 mmol/L (3.4-5.0)
[2019-04-21 06:09] LABS: CREATININE, serum 8.76 (0.66-1.25)
--- NOTE | 2019-04-21 06:31 | NUR ---
PT HAD AN UNEVENTFUL NIGHT. LEFT FISTULA- BRUIT AN THRILL NOTED COVERED WITH GAUZE. IV FLUSHES WELL, NO REDNESS, NO SWELLING. BRUISING TO RIGHT EYE NOTED. REPORTED NO PAIN. BG [phone] DURING NIGHT. PT AJUSTED INSULIN PUMP PER BEDROS ORDER. BP DECREASED THROUGHOUT NIGHT. NO NEEDS AT THIS TIME. AT BEDSIDE.
--- NOTE | 2019-04-21 07:25 | NUR ---
report given to john lee. pt report no needs
--- NOTE | 2019-04-21 09:27 | NUR ---
Patient in bed awake and eating breakfast. A&Ox3. Morning medication given. Patient denies pain. Bed bath given along with linen change. No further needs identified at this time.
--- NOTE | 2019-04-21 11:46 | NUR ---
First visit from the solar mechanical engineer. No needs right now.
--- NOTE | 2019-04-21 12:28 | NUR ---
patient down to dialysis
--- NOTE | 2019-04-21 16:23 | NUR ---
Patient returned to floor from dialysis
--- NOTE | 2019-04-21 18:00 | NUR ---
Patient had uneventfull shift. Went down to dialysis. Did have increase in BP. NO PRN's given. Patient denies pain. Elevated BP after diaylsis. Dr. Grullon aware and will make changes as necessary. Patient 1800 now eating dinner sitting in recliner. No needs identified. Will continue to monitor.
--- NOTE | 2019-04-21 22:15 | NUR ---
PT RESTING IN CHAIR ON THE PHONE WITH . IV FLUSHES WELL, NO REDNESS, NO SWELLING. LEFT ARM FISTULA BRUIT AND THRILL NOTED. BG 388- INSULIN GIVEN PER ORDER. MINIMAL EDEMA NOTED IN BILAT LEGS. RIGT EYE BRUISING NOTED. DR. FITCH- "PT WILL HAVE 2 HOURS OF DIALYSIS IN AM THEN GO HOME AFTER" PT REPORTS PAIN IN TOOTH- PRN TYLENOL GIVEN WITH ICEPACK. NO NEEDS AT THIS TIEM. CALL LIGHT IN REACH
[2019-04-22 01:37] VITALS: BP 179/107
--- NOTE | 2019-04-22 03:45 | NUR ---
PT RESTING IN BED A+OX4. HYDRALAZINE GIVEN FOR ELEVATED BP. NO NEEDS AT THIS TIME. CALL LIGHT IN REACH
[2019-04-22 04:02] VITALS: BP 173/98; PULSE 78; TEMP 97.9
--- NOTE | 2019-04-22 05:27 | NUR ---
PT HAD AN UNEVENTFUL NIGHT. BP AND BG ELEVATED AND TREATED PER ORDERS. TOOTH PAIN REPORTED- PRN TYLENOL AND ICE GIVEN. IV FLUSHES WELL, NO REDNESS, NO SWELLING. FISTULA BRUIT AND THRILL NOTED. ARM RESTICTION BAND ON. BRUISING TO RIGHT EYE NOTED. MINIMAL EDEMA IN BILAT LOWER EXTREMITIES. NO OTHER NEEDS AT THIS TIME, CALL LIGHT IN REACH
[2019-04-22 06:07] LABS: BASO # 0.1 (0.0-0.2); EOS # 0.2 (0.0-0.7); EOS % 4.1 % (0-4.0); GRAN # 3.7 (1.4-6.5); GRAN % 62.6 % (42.2-75.2); HEMOGLOBIN 10.9 g/dl (13.5-18.0); LYMPH # 1.3 (1.2-3.4); LYMPH % 22.2 % (20.0-51.0); MEAN CELL VOLUME 87 fl (80.0-100.0); MEAN CORPUSCULAR HEMOGLOBIN 29 pg (27.0-31.0); MEAN CORPUSCULAR HGB CONC 33 g/dl (33.0-37.0); MEAN PLATELET VOLUME 9.2 fl (7.4-10.4); MONO # 0.6 (0.1-0.6); MONO % 9.6 % (1.7-9.3); PLATELET COUNT 114 K/mm3 (130-400); RED BLOOD COUNT 3.77 M/mm3 (4.20-5.60); REDCELL DISTRIBUTION WIDTH-CV 14.4 % (11.5-14.5)
[2019-04-22 06:19] LABS: ALBUMIN 4.1 gm/dL (3.5-5.0); CALCIUM 9.5 mg/dL (8.4-10.2); CREATININE, serum 6.76 (0.66-1.25); HEMATOCRIT 32.7 % (42.0-52.0); PHOSPHOROUS 5.1 mg/dL (2.5-4.5)
--- NOTE | 2019-04-22 07:31 | NUR ---
report given to john duarte
--- NOTE | 2019-04-22 07:41 | NUR ---
Assessment completed, alert/oriented, vital signs have been stable/ HTN and using Hydralazine PRN, denies pain or discomfort, fsbs in good control / 131 this morning, he is not eating prior to dialysis, breathing easier and denies any SOA, lungs CTA, heart RRR/distal pulses are palpable, no edema noted, we are transporting him down to diaylsis at this time
--- NOTE | 2019-04-22 12:00 | NUR ---
Patient discharge instructions discussed, instructed to follow up with and resume normal M.W.F dialysis schedule starting tommorow 04/23/19, instructed to continue previous home meds and that there are now NEW meds or changes made, rmeoved right hand IV site, leaving with his , i personally escorted them out the door
== END 2019-04-22 12:24 | disposition home or self-care (01) | DRG 291 ==
LOC: COL.ER 02:42 → MEDICAL 04:22
PROVIDERS: Emergency Medicine; ADMIT Internal Medicine Nephrology
PROC: 5A1D70Z Performance of Urinary Filtration, Intermittent, Less than 6 Hours Per Day (ICD-10-PCS; principal; 2019-04-20)
DX: I13.2 Hypertensive heart and chronic kidney disease with heart failure and with stage 5 chronic kidney disease, or end stage renal disease (principal); I50.31 Acute diastolic (congestive) heart failure; N18.6 End stage renal disease; I16.1 Hypertensive emergency; N25.81 Secondary hyperparathyroidism of renal origin; I69.354 Hemiplegia and hemiparesis following cerebral infarction affecting left non-dominant side; E10.22 Type 1 diabetes mellitus with diabetic chronic kidney disease; E10.65 Type 1 diabetes mellitus with hyperglycemia; Z99.2 Dependence on renal dialysis; Z96.41 Presence of insulin pump (external) (internal); E10.319 Type 1 diabetes mellitus with unspecified diabetic retinopathy without macular edema; E10.21 Type 1 diabetes mellitus with diabetic nephropathy; E10.40 Type 1 diabetes mellitus with diabetic neuropathy, unspecified; D63.1 Anemia in chronic kidney disease; E83.39 Other disorders of phosphorus metabolism; Z88.1 Allergy status to other antibiotic agents; Z88.5 Allergy status to narcotic agent
CPT/HCPCS: J1644; J1815; J1940; J2270; J7030

== ENCOUNTER 2019-06-17 08:32 | Inpatient (IN) | payer MEDICARE, MEDICAID ==
[~2019-06-17] VITALS: Ht 177.8 cm; Wt 72.7 kg
[2019-06-17] VITALS (16 sets, daily range): BP systolic 186–217; BP diastolic 106–130; PULSE 85–94; TEMP 97.9–98.8
[2019-06-17 09:12] LABS: BASO % 0.7 % (0.0-2.0); EOS # 0.2 (0.0-0.7); EOS % 4.3 % (0-4.0); GRAN # 3.4 (1.4-6.5); GRAN % 62.5 % (42.2-75.2); HEMATOCRIT 32.5 % (42.0-52.0); HEMOGLOBIN 10.9 g/dl (13.5-18.0); LYMPH # 1.2 (1.2-3.4); LYMPH % 22.7 % (20.0-51.0); MEAN CELL VOLUME 88 fl (80.0-100.0); MEAN CORPUSCULAR HEMOGLOBIN 30 pg (27.0-31.0); MEAN CORPUSCULAR HGB CONC 34 g/dl (33.0-37.0); MEAN PLATELET VOLUME 8.9 fl (7.4-10.4); MONO # 0.5 (0.1-0.6); MONO % 9.4 % (1.7-9.3); PLATELET COUNT 109 K/mm3 (130-400); RED BLOOD COUNT 3.69 M/mm3 (4.20-5.60)
[2019-06-17 09:23] LABS: ALBUMIN 4.6 gm/dL (3.5-5.0); BILIRUBIN,TOTAL 0.6 mg/dL (0.0-1.0); CALCIUM 9.6 mg/dL (8.4-10.2); CREATININE, serum 7.16 (0.66-1.25); MAGNESIUM 2.1 mg/dL (1.6-2.3); PHOSPHOROUS 4.7 mg/dL (2.5-4.5); POTASSIUM 4.6 mmol/L (3.4-5.0); TOTAL PROTEIN 7.1 gm/dL (6.4-8.2)
[2019-06-17 09:35] LABS: TROPONIN-I 0.022 ng/mL (0.000-0.035)
[2019-06-17] MEDS ORDERED: HUMALOG100 U/ML SQ (11:01)
--- NOTE | 2019-06-17 12:03 | NUR ---
Pt up to room 352. Oriented to room, call light. Admission and med rec completed. Pt denies chest pain, dizziness, pain, N/V, SOB. Pt on room air. INT IV to RAC flushes well. LFA fistula present with no complications. Pt educated on fluid restriction. No concerns voiced at this time. Pt down for dialysis at this time.
--- NOTE | 2019-06-17 18:06 | NUR ---
Pt back from dialysis at 1545. 4.5 KG taken off, BPs high in dialysis per ANTHONY Fleming. Jose notified/aware per Bernadette. Jose to see pt back on floor. Pt voices no concerns at this time.
--- NOTE | 2019-06-17 20:48 | NUR ---
Report recieved from ANTHONY Haney. Patient resting in chair. Alert and oriented. Blood pressures elevated, other vitals normal. Denies any pain. IV patent, flushed. Pulses strong. Patient wondering about blood pressure medications. Says he usually takes them at night. Denies further needs at this time. Call light within reach.
[2019-06-18 04:09] VITALS: BP 179/113; PULSE 80; TEMP 97.9
--- NOTE | 2019-06-18 05:29 | NUR ---
Patient had uneventful night. Had elevated blood pressures and PRN hydralazine given. Denied pain throughout the night. Call light within reach.
--- NOTE | 2019-06-18 06:58 | NUR ---
Report given to ANTHONY Haney.
[2019-06-18 07:39] LABS: BASO # 0.1 (0.0-0.2); EOS # 0.2 (0.0-0.7); EOS % 3.9 % (0-4.0); GRAN # 2.7 (1.4-6.5); GRAN % 55.3 % (42.2-75.2); HEMOGLOBIN 11.9 g/dl (13.5-18.0); LYMPH # 1.4 (1.2-3.4); LYMPH % 28.2 % (20.0-51.0); MEAN CELL VOLUME 88 fl (80.0-100.0); MEAN CORPUSCULAR HEMOGLOBIN 29 pg (27.0-31.0); MEAN CORPUSCULAR HGB CONC 33 g/dl (33.0-37.0); MEAN PLATELET VOLUME 8.9 fl (7.4-10.4); MONO # 0.6 (0.1-0.6); MONO % 11.2 % (1.7-9.3); PLATELET COUNT 112 K/mm3 (130-400); RED BLOOD COUNT 4.08 M/mm3 (4.20-5.60); REDCELL DISTRIBUTION WIDTH-CV 14.1 % (11.5-14.5)
[2019-06-18 07:43] VITALS: BP 188/121; PULSE 78; TEMP 97.8
[2019-06-18 07:48] LABS: ALBUMIN 4.5 gm/dL (3.5-5.0); PHOSPHOROUS 5.2 mg/dL (2.5-4.5); POTASSIUM 4.6 mmol/L (3.4-5.0)
[2019-06-18 07:49] LABS: CREATININE, serum 6.2 (0.66-1.25)
--- NOTE | 2019-06-18 08:37 | NUR ---
Pt assessment completed and charted. Pt denies any pain, dizziness, chest pain, N/V. Per pt, "just sleepy". BP 188/121, currently down for dialysis at this time. RAC INT IV flushes well with no complications. LFA fistula with no complications, bruit and thrill present. Pulses strong bilaterally. Pt educated about fluid restriction. No other concerns voiced at this time.
[2019-06-18 13:08] VITALS: BP 148/97; PULSE 92; TEMP 98.3
[2019-06-18 16:08] VITALS: BP 147/90; PULSE 93; TEMP 98.3
[2019-06-18] MEDS ORDERED: LEVAQUIN 5500 MG/TA1 PO (16:27)
--- NOTE | 2019-06-18 16:33 | NUR ---
SW met with the patient to discuss discharge plan. The patient lives in [place] with his , Marium (ph#[phone]). He reports independence with ADLs and has a walker. The patient states that Dr. Kvng Grullon became his PCP and that he receives his medications at the [facility] and [facility] in [place]. He reports no difficulties obtaining his meds. The patient does not have advanced directives and he was not interested in completing them at this time. The patient plans to return home with his upon discharge. No additional needs at this time.
--- NOTE | 2019-06-18 18:57 | NUR ---
Pt had uneventful day after dialysis. Bedrose to discharge patient. BPs have been better. Pt denies needs or concerns. Discharge instructions discussed and reviewed with patient. All questions answered. LAC INT IV dc'd with catheter tip intact and no complications. Pt escorted out janet HUTCHISON by nursing staff.
== END 2019-06-18 18:00 | disposition home or self-care (01) | DRG 304 ==
LOC: COL.ER 08:32 → MEDICAL 09:59
PROVIDERS: Emergency Medicine; ADMIT Internal Medicine Nephrology
PROC: 5A1D70Z Performance of Urinary Filtration, Intermittent, Less than 6 Hours Per Day (ICD-10-PCS; principal; 2019-06-17)
DX: I16.0 Hypertensive urgency (principal); J18.1 Lobar pneumonia, unspecified organism; N18.6 End stage renal disease; J81.1 Chronic pulmonary edema; N25.81 Secondary hyperparathyroidism of renal origin; I69.954 Hemiplegia and hemiparesis following unspecified cerebrovascular disease affecting left non-dominant side; H54.61 Unqualified visual loss, right eye, normal vision left eye; E83.39 Other disorders of phosphorus metabolism; I12.0 Hypertensive chronic kidney disease with stage 5 chronic kidney disease or end stage renal disease; D63.1 Anemia in chronic kidney disease; E10.22 Type 1 diabetes mellitus with diabetic chronic kidney disease; Z99.2 Dependence on renal dialysis; Z96.41 Presence of insulin pump (external) (internal); Z91.19 Patient's noncompliance with other medical treatment and regimen; Z79.4 Long term (current) use of insulin; Z79.02 Long term (current) use of antithrombotics/antiplatelets; Z87.891 Personal history of nicotine dependence
CPT/HCPCS: J0360; J1644; J7030

== ENCOUNTER → 2020-02-11 | Outpatient (CLI) | payer BC, MEDICARE ==
[~2020-02-11] MED LIST changes: +HUMALOG100 U/ML SQ
== END ==
LOC: ZCOL.LAB 10:21
DX: Z03.818 Encounter for observation for suspected exposure to other biological agents ruled out (principal)

== ENCOUNTER 2020-11-11 06:17 | Outpatient (CLI) | payer MEDICARE, MEDICAID ==
[2020-11-11] VITALS (8 sets, daily range): BP systolic 160–184; BP diastolic 92–110; PULSE 77–85; TEMP 98.6
[~2020-11-11] VITALS: Ht 177.8 cm; Wt 84.8 kg
[2020-11-11] MEDS ORDERED: NEURONTIN100 MG/CAP PO (06:37)
--- NOTE | 2020-11-11 07:19 | NUR ---
22 gauge IV placed to right AC. Fistula left arm bruit and thrill noted with strong pulse. BP high at 180/105 down from 134/115 at 0700, pt did not take HTN meds this morning.
--- NOTE | 2020-11-11 08:11 | NUR ---
SEE MERGE FOR ALL MEDICATION ADMINISTRATION TIMES, INTRA AND POST SEDATION ASSESSMENT
--- NOTE | 2020-11-11 10:15 | NUR ---
INT discontinued intact. Discharge instructions given. Transferred to private car by montrell
== END 2020-11-11 10:20 | disposition home or self-care (01) ==
LOC: COL.CAR 06:17
DX: T82.898A Other specified complication of vascular prosthetic devices, implants and grafts, initial encounter (principal); Z88.1 Allergy status to other antibiotic agents; Z88.6 Allergy status to analgesic agent; Z88.8 Allergy status to other drugs, medicaments and biological substances; Z87.891 Personal history of nicotine dependence; Z86.73 Personal history of transient ischemic attack (TIA), and cerebral infarction without residual deficits
CPT/HCPCS: J1644; J2250; J3010; Q9967

== ENCOUNTER 2021-03-03 13:36 | Inpatient (IN) | payer MEDICARE, MEDICAID ==
[~2021-03-03] VITALS: Ht 177.8 cm; Wt 76.9 kg
[2021-03-03 14:22] LABS: BASO # 0.1 (0.0-0.2); BASO % 0.6 % (0.0-2.0); EOS # 0.4 (0.0-0.7); EOS % 3.7 % (0-4.0); GRAN # 8.2 (1.4-6.5); GRAN % 78.9 % (42.2-75.2); HEMATOCRIT 30.4 % (42.0-52.0); HEMOGLOBIN 10.2 g/dl (13.5-18.0); LYMPH # 0.9 (1.2-3.4); LYMPH % 8.9 % (20.0-51.0); MEAN CELL VOLUME 91 fl (80.0-100.0); MEAN CORPUSCULAR HEMOGLOBIN 30 pg (27.0-31.0); MEAN CORPUSCULAR HGB CONC 34 g/dl (33.0-37.0); MEAN PLATELET VOLUME 8.9 fl (7.4-10.4); MONO # 0.8 (0.1-0.6); MONO % 7.4 % (1.7-9.3); PLATELET COUNT 132 K/mm3 (130-400); RED BLOOD COUNT 3.36 M/mm3 (4.20-5.60); REDCELL DISTRIBUTION WIDTH-CV 12.6 % (11.5-14.5)
[2021-03-03 14:24] LABS: INR 1.1 (0.8-3.0); PROTHROMBIN TIME 12.3 SECONDS (9.7-12.8)
[2021-03-03 14:28] LABS: ALANINE AMINOTRANSFERASE 10 U/L (4-49); ALBUMIN 4.4 gm/dL (3.5-5.0); ALKALINE PHOSPHATASE 152 U/L (50-136); ANION GAP 12 mmol/L (7-16); AST,SGOT 14 U/L (15-37); BILIRUBIN,TOTAL 0.5 mg/dL (0.0-1.0); BLOOD UREA NITROGEN 33 mg/dL (9-20); CALCIUM 9.5 mg/dL (8.4-10.2); CARBON DIOXIDE 27 mmol/L (22-30); CHLORIDE 99 mmol/L (98-107); CREATININE, serum 9.32 (0.66-1.25); GLUCOSE 185 mg/dL (74-106); POTASSIUM 4.9 mmol/L (3.4-5.0); SODIUM 137 mmol/L (137-145); TOTAL PROTEIN 7.5 gm/dL (6.4-8.2)
[2021-03-03 14:49] LABS: TROPONIN-I < 0.012 ng/mL (0.000-0.035)
[2021-03-03] MEDS ORDERED: PHOS LO PO (17:47)
[2021-03-03] MEDS ORDERED: VELPHORO PO (17:47)
[2021-03-03 18:02] VITALS: BP 173/85; PULSE 91; TEMP 100.1
--- NOTE | 2021-03-03 18:27 | NUR ---
Admission assessment completed, alert/oriented, low grade fever at this time, he reports overall feeling better, denies SOA at this time/ lungs CTA/ diminished, heart RRR/ distal pulses are palpable, LUE restricted for dialysis/ fistula has +bruit/thrill, meds/allergies/pharmacy reviewed with the patient, Vanco was started in the ER and is infusing now, he is up independently, he dneies other needs at this time
[2021-03-03] MEDS ORDERED: COREG 25MG25 MG/TAB PO (21:56)
[2021-03-03 23:15] LABS: COLLECTION METHOD CLEAN CATCH
[2021-03-03 23:23] LABS: PH 9 (5-8); SQUAMOUS EPITHELIAL None Seen /hpf; URINE APPEARANCE Clear; URINE BACTERIA None Seen /hpf; URINE BILIRUBIN Negative (NEGATIVE); URINE BLOOD Negative (NEGATIVE); URINE COLOR Straw; URINE GLUCOSE 3+ (NEGATIVE); URINE KETONE Negative (NEGATIVE); URINE LEUKOCYTE ESTERASE Negative (NEGATIVE); URINE NITRATE Negative (NEGATIVE); URINE PROTEIN(semi-quant) 2+ (NEGATIVE); URINE RBC 0-2 /hpf; URINE UROBILINOGEN Negative (NEGATIVE)
[2021-03-04 00:56] VITALS: BP 158/86; PULSE 95; TEMP 98.6
--- NOTE | 2021-03-04 02:29 | NUR ---
PT A/OX4, BP REMAINS ELEVATED, ALL SHIFT MEDICATIONS ADMINISTERED. 02 ROOM AIR, PT DENIES PAIN, FEVER, PAIN, SOB. CURRENTLY HAS MILD COUGH WITH NO SPUTUM PRODUCTION. PT REPORTS CHILLS. 1999 TEMPERATURE WAS SLIGHTLY ELEVATED AT 100.1, 0000 TEMPERATURE SLIGHTLY DOWN. PT STATES HE IS RUNNING OUT OF HIS INSULIN FOR HIS PUMP AND HIS WILL BE HERE IN THE MORNING TO DROP OFF EXTRA INSULIN AND NEEDED SUPPLIES. PT EXPRESSES NO ADDITIONAL NEEDS AT THIS TIME. CALL LIGHT WITHIN REACH.
[2021-03-04 04:34] VITALS: BP 165/90; PULSE 99; TEMP 100.6
--- NOTE | 2021-03-04 04:58 | NUR ---
PT REQUESTS TYLENOL AND ZOFRAN. PT STATES HE FEELS NAUSEATED, NO V/D, BP SYSTOLIC STILL ELEVATED, TEMPERATURE 100.6, TYLENOL ADMINISTERED. NURSE WILL F/U. CALL LIGHT WITHIN REACH.
--- NOTE | 2021-03-04 05:32 | NUR ---
UPON TYLENOL ADMINISTRATION F/U PTS TEMPERATURE DROPPED TO 99.7. GLUCOSE READING 264. PT SELF ADMINISTERED INSULIN VIA PUMP. PT EXPRESSES NO ADDITIONAL NEEDS AT THIS TIME. CALL LIGHT WITHIN REACH.
[2021-03-04 06:25] LABS: BASO # 0.1 (0.0-0.2); BASO % 0.5 % (0.0-2.0); EOS # 0.2 (0.0-0.7); GRAN # 8.7 (1.4-6.5); GRAN % 78.6 % (42.2-75.2); LYMPH # 1.2 (1.2-3.4); LYMPH % 10.9 % (20.0-51.0); MEAN CELL VOLUME 91 fl (80.0-100.0); MEAN CORPUSCULAR HGB CONC 33 g/dl (33.0-37.0); MEAN PLATELET VOLUME 9.7 fl (7.4-10.4); MONO # 0.8 (0.1-0.6); MONO % 7.5 % (1.7-9.3); PLATELET COUNT 125 K/mm3 (130-400); RED BLOOD COUNT 3.09 M/mm3 (4.20-5.60); REDCELL DISTRIBUTION WIDTH-CV 12.5 % (11.5-14.5)
[2021-03-04 06:33] LABS: HEMOGLOBIN 9.3 g/dl (13.5-18.0); MEAN CORPUSCULAR HEMOGLOBIN 30 pg (27.0-31.0)
[2021-03-04 06:51] LABS: ALBUMIN 3.9 gm/dL (3.5-5.0); CALCIUM 9.2 mg/dL (8.4-10.2); CREATININE, serum 10.81 (0.66-1.25); PHOSPHOROUS 4.3 mg/dL (2.5-4.5); POTASSIUM 5.1 mmol/L (3.4-5.0)
--- NOTE | 2021-03-04 09:30 | NUR ---
Patient alert and oriented, answers questions appropriately. See assessment. Lungs with scattered wheezes in bases, clear in upper lobes. VSS. No c/o short of air. No use of accessory muscles for breathing noted. Continues isolation. No other c/o at this time
--- NOTE | 2021-03-04 11:36 | NUR ---
Dr Linares notified of consult.
--- NOTE | 2021-03-04 14:18 | NUR ---
Patient tolerated HD tx with 2.2L fluid removal, below dry weight. Next HD tx planned for Sunday03/07/21 @ 0800.
--- NOTE | 2021-03-04 15:04 | NUR ---
Independent Consultant contacted patient by phone to discuss discharge planning as he is in isolation precautions for COVID 19. Patient lives in [place] with his , Marium (ph#[phone]) and their 4 month old son. Patient states his primary care physician is Dr. Grullon. Patient goes to dialysis MWF and reports his father, Alejo transports him. Patient uses diabetic supplies at home and no other DME. Patient is independent with ADLS. Patient does not have Advance Directives completed. Patient advised he plans to return home upon discharge. Discharge Plan: Home
[2021-03-04 20:33] VITALS: BP 144/82; PULSE 86; TEMP 98.9
--- NOTE | 2021-03-04 21:06 | NUR ---
Patient sitting on the chair upon enter the room. Shift assessment completed. Patient A/O x4. Patient denies SOB or dyspnea. Patient currently on room air with SPO2 100% on RA. Occasional non-productive cough noted. Patient reports pain to his right lung area 5 or 6/10. PRN Tramadol given for pain. All scheduled meds given per DEC. Left forearm fistula site dressing C/D/I. Right AC IV site has no s/s of complications. Call light within reach. Patient denies any needs at this time.
[2021-03-04 23:59] VITALS: BP 156/87; PULSE 92; TEMP 98.7
[2021-03-05 04:22] VITALS: BP 161/87; PULSE 91; TEMP 98.8
--- NOTE | 2021-03-05 05:53 | NUR ---
Patient c/o nausea on and off throughout the night. PRN Zofran given twice over the night. PRN Tramadol given twice for c/o pain to right side of upper and lower lobe lung area. Call light within reach.
[2021-03-05 07:18] LABS: BASO # 0.1 (0.0-0.2); BASO % 0.5 % (0.0-2.0); EOS # 0.4 (0.0-0.7); EOS % 3.7 % (0-4.0); GRAN # 8.2 (1.4-6.5); GRAN % 71.2 % (42.2-75.2); LYMPH # 1.7 (1.2-3.4); LYMPH % 14.9 % (20.0-51.0); MEAN CELL VOLUME 92 fl (80.0-100.0); MEAN CORPUSCULAR HGB CONC 33 g/dl (33.0-37.0); MEAN PLATELET VOLUME 9.9 fl (7.4-10.4); MONO % 8.9 % (1.7-9.3); PLATELET COUNT 142 K/mm3 (130-400); RED BLOOD COUNT 3.13 M/mm3 (4.20-5.60); REDCELL DISTRIBUTION WIDTH-CV 12.8 % (11.5-14.5)
[2021-03-05 07:21] LABS: HEMATOCRIT 28.9 % (42.0-52.0); HEMOGLOBIN 9.6 g/dl (13.5-18.0); MEAN CORPUSCULAR HEMOGLOBIN 31 pg (27.0-31.0)
[2021-03-05 07:27] LABS: ALBUMIN 4.1 gm/dL (3.5-5.0); CALCIUM 9.6 mg/dL (8.4-10.2); CREATININE, serum 9.84 (0.66-1.25); POTASSIUM 5.1 mmol/L (3.4-5.0)
[2021-03-05 07:48] LABS: PHOSPHOROUS 4.5 mg/dL (2.5-4.5)
[2021-03-05 07:52] VITALS: BP 165/91; PULSE 90; TEMP 98.5
--- NOTE | 2021-03-05 08:00 | NUR ---
Patient laying in bed, complaints of nausea and not getting enough rest over the night. A&Ox4. Denies pain and only reporting nausea, nausea medication given as requested. VSS no reported SOB. IV CDI. Droplet/contact precautions in place. No further needs expressed from the patient. Call light within reach
[2021-03-05 12:09] VITALS: BP 150/89; PULSE 83; TEMP 98.2
--- NOTE | 2021-03-05 18:02 | NUR ---
Patient resting in bed, A&Ox4. VSS, no reported SOB. IV CDI. Just complaints of being tired. Has a decreased appetite and nursing staff is encouraging increased PO intake. Patient verbalized an understanding. Droplet/contact precaution in place. No further needs expressed from the patient. Call light within reach
[2021-03-05 19:45] VITALS: BP 153/85; PULSE 85; TEMP 98.7
--- NOTE | 2021-03-05 21:08 | NUR ---
ALERT AND OX4. DENIES SOA, PAIN OR LIGHTHEADNESS. NO COUGH OR CONGESTION. IV TO RT AC LEAKING DC AND STARTING NEW ONE. UP IND IN ROOM. PM MEDS GIVEN, ANTIBOTICS. POC DISCUSSED. SOME NAUSEA, ZOFRAN GIVEN. NEEDS MET.
--- NOTE | 2021-03-05 22:11 | NUR ---
BLOOD SUGAR 265. SELF DOSES 2 UNITS PER INSULIN PUMP PER ORDER. IV RESTARTED TO RT AC DIFFERENT VEIN. ANTIBOTICS CONTINUED. NEEDS MET.
[2021-03-05 23:49] VITALS: BP 159/87; PULSE 88; TEMP 98.6
--- NOTE | 2021-03-06 04:38 | NUR ---
RESTED IN BED THOUGH OUT THE NIGHT WITHOUT INCIDENT. NO C/O SOA, OR CHEST PAIN. NEEDS MET.
[2021-03-06 04:55] VITALS: BP 166/89; PULSE 86; TEMP 98.4
--- NOTE | 2021-03-06 06:23 | NUR ---
PT BLOOD SUGAR 199- SELF DOSE OF 1 UNIT PER INSULIN PUMP.
[2021-03-06 06:48] LABS: ALBUMIN 4.1 gm/dL (3.5-5.0); CALCIUM 9.5 mg/dL (8.4-10.2); CREATININE, serum 11.95 (0.66-1.25); PHOSPHOROUS 5.4 mg/dL (2.5-4.5); POTASSIUM 5.1 mmol/L (3.4-5.0)
[2021-03-06 06:51] LABS: MEAN CELL VOLUME 92 fl (80.0-100.0); MEAN CORPUSCULAR HGB CONC 34 g/dl (33.0-37.0); MEAN PLATELET VOLUME 9.9 fl (7.4-10.4); PLATELET COUNT 165 K/mm3 (130-400); RED BLOOD COUNT 3.12 M/mm3 (4.20-5.60); REDCELL DISTRIBUTION WIDTH-CV 12.5 % (11.5-14.5)
[2021-03-06 06:52] LABS: HEMATOCRIT 28.6 % (42.0-52.0); HEMOGLOBIN 9.8 g/dl (13.5-18.0); MEAN CORPUSCULAR HEMOGLOBIN 31 pg (27.0-31.0)
[2021-03-06 07:34] LABS: BAND 2 % (0-10); EOSINOPHIL 4 % (0-4); LYMPHOCYTE 11 % (20.0-51.0); NEUTROPHILS 75 % (42.0-75.2); PLATELET ESTIMATE NORMAL (NORMAL)
--- NOTE | 2021-03-06 07:36 | NUR ---
Report with ANTHONY Becerril outside of room d/t isolation. This nurse checks in at door, pt sitting up in bed, denies needs at this time. Call light in reach.
--- NOTE | 2021-03-06 08:15 | NUR ---
Assessment complete. Pt sitting up in chair, A&O x 4, reports slight headache, denies need for medication at this time. Saline lock IV to right AC without s/s of complications. Physical assessment unremarkable. No further needs reported. Call light in reach.
[2021-03-06 08:47] VITALS: BP 153/86; PULSE 91; TEMP 98.8
[2021-03-06 13:10] VITALS: BP 144/78; PULSE 80; TEMP 98.7
[2021-03-06 15:53] LABS: PROCALCITONIN 2.69 ng/mL (0.00-0.09)
[2021-03-06 17:59] VITALS: BP 156/83; PULSE 79; TEMP 98.2
--- NOTE | 2021-03-06 18:00 | NUR ---
Pt sitting up in chair for dinner. Sched medications administered per orders. Pt denies pain or needs at this time. Uneventful shift. Call light in reach.
[2021-03-06 19:53] VITALS: BP 151/85; PULSE 81; TEMP 99
[2021-03-07 00:05] VITALS: BP 169/71; PULSE 82; TEMP 98.5
[2021-03-07 03:26] VITALS: BP 156/81; PULSE 81; TEMP 98.1
[2021-03-07 07:29] LABS: BASO % 0.6 % (0.0-2.0); EOS # 0.5 (0.0-0.7); GRAN # 4.1 (1.4-6.5); GRAN % 59.6 % (42.2-75.2); LYMPH # 1.6 (1.2-3.4); LYMPH % 23.6 % (20.0-51.0); MEAN CELL VOLUME 89 fl (80.0-100.0); MEAN CORPUSCULAR HGB CONC 34 g/dl (33.0-37.0); MEAN PLATELET VOLUME 9.2 fl (7.4-10.4); MONO # 0.6 (0.1-0.6); MONO % 8.3 % (1.7-9.3); PLATELET COUNT 158 K/mm3 (130-400); RED BLOOD COUNT 2.72 M/mm3 (4.20-5.60); REDCELL DISTRIBUTION WIDTH-CV 12.4 % (11.5-14.5)
[2021-03-07 07:32] LABS: HEMATOCRIT 24.1 % (42.0-52.0); HEMOGLOBIN 8.2 g/dl (13.5-18.0); MEAN CORPUSCULAR HEMOGLOBIN 30 pg (27.0-31.0)
[2021-03-07 08:10] LABS: ALBUMIN 3.8 gm/dL (3.5-5.0); CALCIUM 9.5 mg/dL (8.4-10.2); PHOSPHOROUS 5.7 mg/dL (2.5-4.5); POTASSIUM 5.3 mmol/L (3.4-5.0)
--- NOTE | 2021-03-07 08:17 | NUR ---
Patient is getting ready to start dialysis at time
[2021-03-07 08:58] LABS: CREATININE, serum 13.93 (0.66-1.25)
[2021-03-07 12:10] VITALS: BP 140/82; PULSE 85; TEMP 98.6
--- NOTE | 2021-03-07 16:02 | NUR ---
Patient tolerated HD tx with 3L fluid removal today. Next planned HD tx on Sunday03/09/21 @ 0800.
[2021-03-07 18:21] VITALS: BP 142/80; PULSE 81; TEMP 98.9
[2021-03-07 19:20] VITALS: BP 146/84; PULSE 89; TEMP 98.8
--- NOTE | 2021-03-07 21:53 | NUR ---
PATIENT DOSED 2.5UNITS
[2021-03-08 00:23] VITALS: BP 138/82; PULSE 87; TEMP 98.6
[2021-03-08 05:43] VITALS: BP 143/82; PULSE 76; TEMP 97.6
--- NOTE | 2021-03-08 07:04 | NUR ---
Patient resting in bed at this time. Patient denies any pain, discomfort, or further needs at this time. Airborne/droplet precautions in place. Will continue to monitor. Call light within reach.
[2021-03-08 07:48] LABS: ALBUMIN 3.9 gm/dL (3.5-5.0); CALCIUM 9.4 mg/dL (8.4-10.2); CREATININE, serum 10.14 (0.66-1.25); PHOSPHOROUS 6.5 mg/dL (2.5-4.5); POTASSIUM 4.8 mmol/L (3.4-5.0)
[2021-03-08 07:54] LABS: MEAN CELL VOLUME 91 fl (80.0-100.0); MEAN CORPUSCULAR HGB CONC 33 g/dl (33.0-37.0); MEAN PLATELET VOLUME 9.4 fl (7.4-10.4); PLATELET COUNT 173 K/mm3 (130-400); RED BLOOD COUNT 2.95 M/mm3 (4.20-5.60); REDCELL DISTRIBUTION WIDTH-CV 12.6 % (11.5-14.5)
[2021-03-08 08:10] LABS: HEMATOCRIT 26.7 % (42.0-52.0); HEMOGLOBIN 8.9 g/dl (13.5-18.0); MEAN CORPUSCULAR HEMOGLOBIN 30 pg (27.0-31.0)
[2021-03-08 08:40] LABS: BAND 6 % (0-10); EOSINOPHIL 5 % (0-4); LYMPHOCYTE 29 % (20.0-51.0); METAMYELOCYTE 1 % (0-0); NEUTROPHILS 52 % (42.0-75.2); PLATELET ESTIMATE NORMAL (NORMAL)
[2021-03-08 09:14] VITALS: BP 153/90; PULSE 7; TEMP 98
--- NOTE | 2021-03-08 09:52 | NUR ---
Scheduled medications given. Assessments performed. Doxycycline held per Mitchel. Patient was experiencing a burning sensation during infusion last pm, rate was slowed, burning sensation persisted. Patient denies any pain, discomfort, or further needs at this time. Will continue to monitor. Call light in reach. Droplet precautions in place.
[2021-03-08 12:43] VITALS: BP 143/77; PULSE 76; TEMP 98.2
--- NOTE | 2021-03-08 13:25 | NUR ---
Lawn Care Worker staffed with Sonal OVIEDO APRN, ELECTRIC DEICER INSPECTOR-C with Dr. Grullon' office reports there was a TB test on 03.07. They are awaiting to see if internalist will release the patient from isolation.
[2021-03-08 15:26] LABS: TB GOLD INTERPRETATION Negative (Negative)
[2021-03-08 16:54] VITALS: BP 148/84; PULSE 77; TEMP 98.4
--- NOTE | 2021-03-08 17:26 | NUR ---
Patient has had a good day. TB came back negative, patient still of droplet precautions for positive covid test. Patient has not C/O any pain or discomfort today. Levaquin running as ordered. Likely to go home after dialysis tomorrow. VSS. Will continue to monitor. Call light in reach.
[2021-03-08 19:48] VITALS: BP 161/88; PULSE 78; TEMP 98.6
[2021-03-09 00:40] VITALS: BP 144/82; PULSE 81; TEMP 98.2
[2021-03-09 04:00] VITALS: BP 161/82; PULSE 80; TEMP 98.3
--- NOTE | 2021-03-09 06:21 | NUR ---
PATIENT RESTED QUIETLY IN BED THROUGHOUT THE NIGHT. NO NEW ISSUES NOTED OR REPORTED BY PATIENT.
[2021-03-09 08:59] VITALS: BP 167/82; PULSE 81; TEMP 97.9
--- NOTE | 2021-03-09 09:03 | NUR ---
Assessment completed, drowsy but arousable and alert/oriented, vital signs stable, denies pain or discomfort, no resp.difficulty/ lungs CTA, blood sugars 226 and patient giving himslef 2 unit of insulin per pump, heart RRR/distal pulses are palapble, denies other needs at this time
[2021-03-09 11:32] VITALS: BP 152/88; PULSE 80; TEMP 98
[2021-03-09 15:15] LABS: MEAN CELL VOLUME 90 fl (80.0-100.0); MEAN CORPUSCULAR HGB CONC 34 g/dl (33.0-37.0); MEAN PLATELET VOLUME 9.2 fl (7.4-10.4); PLATELET COUNT 182 K/mm3 (130-400); RED BLOOD COUNT 2.93 M/mm3 (4.20-5.60); REDCELL DISTRIBUTION WIDTH-CV 12.3 % (11.5-14.5)
[2021-03-09 15:22] LABS: HEMATOCRIT 26.3 % (42.0-52.0); MEAN CORPUSCULAR HEMOGLOBIN 31 pg (27.0-31.0)
[2021-03-09 15:27] LABS: ALBUMIN 3.9 gm/dL (3.5-5.0); CALCIUM 9.5 mg/dL (8.4-10.2); CREATININE, serum 12.3 (0.66-1.25); PHOSPHOROUS 5.8 mg/dL (2.5-4.5); POTASSIUM 5.5 mmol/L (3.4-5.0)
[2021-03-09 16:00] VITALS: BP 146/81; PULSE 81; TEMP 98.2
[2021-03-09 18:14] LABS: BAND 2 % (0-10); EOSINOPHIL 6 % (0-4); LYMPHOCYTE 18 % (20.0-51.0); MYELOCYTE 2 % (0-0); NEUTROPHILS 68 % (42.0-75.2); PLATELET ESTIMATE NORMAL (NORMAL)
[2021-03-09 21:02] VITALS: BP 114/82; PULSE 83; TEMP 98.5
[2021-03-10 00:16] VITALS: BP 159/87; PULSE 85; TEMP 98.7
[2021-03-10 03:58] VITALS: BP 108/73; PULSE 85; TEMP 97.9
[2021-03-10 04:37] VITALS: BP 146/83; PULSE 75; TEMP 97.9
--- NOTE | 2021-03-10 05:59 | NUR ---
PATIENT RESTED QUIETLY IN BED THROUGHOUT THE NIGHT. NO NEW ISSUES NOTED OR REPORTED BY PATIENT.
[2021-03-10 08:20] LABS: .HISTOPLASMA ANTIGEN SERUM None Detected (())
[2021-03-10 09:00] VITALS: BP 152/87; PULSE 80; TEMP 98.5
--- NOTE | 2021-03-10 10:51 | NUR ---
Assessment completed, alert/oriented, vital signs stable, denies pain or discomfort, lungs CTA/ no respd.fificulty, on room air, no cough or dyspnea, heart RRR, repeat swab done for RVP and COVID and is pending, patient really anxious to get home and is getting frustrated with his situation, he denies other needs at his time
[2021-03-10 12:00] VITALS: BP 142/86; PULSE 74; TEMP 98.6
[2021-03-10] MEDS ORDERED: MONODOX100 PO (13:56)
[2021-03-10] MEDS ORDERED: LEVAQUIN 5500 MG/TA1 PO (13:59)
--- NOTE | 2021-03-10 14:19 | NUR ---
The patient will tentatively discharge home today, 03/10. The patient is out of isolation precautions. Wildlife Manager met with the patient to present IM form. The patient verbalized understanding and gave SW permission to sign the form on his behalf. The patient did not want a copy, original placed in chart. There are no additional needs. *Discharge disposition: Home
--- NOTE | 2021-03-10 15:01 | NUR ---
Patient discharging home, dsicussed d/c orders and instructions, instructed to resume normal diaylsis schedule, instructed to finish course of Abx as ordered, scripts sent to pharmacy in [place] for him, IV site removed, expaliend that most recent Nasopharyngeal swab was NEG for COVID 19 and no isolation p.c needed at this time, patient ambulatory and I will escort him out once his ride arrives
[2021-03-18 15:33] LABS: COCCIDIOIDES AB IGG Negative (Negative); COCCIDIOIDES AB IGM Negative (Negative); COCCIDIOIDES CF Negative (Negative)
== END 2021-03-10 15:03 | disposition home or self-care (01) | DRG 193 ==
LOC: COL.ER 13:36 → MEDICAL 15:56
PROVIDERS: Internal Medicine Pulmonary Disease; Physician Assistant; ADMIT Internal Medicine Nephrology
PROC: 8E0ZXY6 Isolation (ICD-10-PCS; principal; 2021-03-03)
PROC: 5A1D70Z Performance of Urinary Filtration, Intermittent, Less than 6 Hours Per Day (ICD-10-PCS; 2021-03-04)
DX: J15.9 Unspecified bacterial pneumonia (principal); N18.6 End stage renal disease; U07.1 COVID-19; I12.0 Hypertensive chronic kidney disease with stage 5 chronic kidney disease or end stage renal disease; N25.81 Secondary hyperparathyroidism of renal origin; I69.954 Hemiplegia and hemiparesis following unspecified cerebrovascular disease affecting left non-dominant side; I16.0 Hypertensive urgency; E10.22 Type 1 diabetes mellitus with diabetic chronic kidney disease; Z99.2 Dependence on renal dialysis; D63.1 Anemia in chronic kidney disease; J98.4 Other disorders of lung; E10.40 Type 1 diabetes mellitus with diabetic neuropathy, unspecified; E10.319 Type 1 diabetes mellitus with unspecified diabetic retinopathy without macular edema; E10.21 Type 1 diabetes mellitus with diabetic nephropathy; Z90.01 Acquired absence of eye; E83.39 Other disorders of phosphorus metabolism; Z79.4 Long term (current) use of insulin; Z87.891 Personal history of nicotine dependence; Z88.1 Allergy status to other antibiotic agents; Z88.5 Allergy status to narcotic agent
CPT/HCPCS: J0696; J1644; J1756; J1956; J2405; J3370; J7030; J7050; Q5105

== ENCOUNTER 2021-11-13 20:45 | Inpatient (IN) | payer MEDICARE, MEDICAID ==
[~2021-11-13] VITALS: Ht 177.8 cm; Wt 86.0 kg
[~2021-11-13 20:45] MED LIST changes: +MONODOX100 PO; +PHOS LO PO; +VELPHORO PO
[2021-11-13 21:33] LABS: BASO # 0.1 K/mm3 (0.0-0.2); BASO % 0.6 % (0.0-2.0); EOS # 0.6 K/mm3 (0.0-0.7); EOS % 5.2 % (0.0-4.0); GRAN # 9.1 K/mm3 (1.4-6.5); GRAN % 73.2 % (42.2-75.2); HEMOGLOBIN 10.8 g/dl (13.5-18.0); LYMPH # 1.8 K/mm3 (1.2-3.4); LYMPH % 14.2 % (20.0-51.0); MEAN CELL VOLUME 86 fl (80.0-100.0); MEAN CORPUSCULAR HEMOGLOBIN 30 pg (27-31); MEAN CORPUSCULAR HGB CONC 35 g/dl (33.0-37.0); MONO # 0.8 K/mm3 (0.1-0.6); MONO % 6.6 % (1.7-9.3); PLATELET COUNT 148 K/mm3 (130-400); RED BLOOD COUNT 3.55 M/mm3 (4.20-5.60); REDCELL DISTRIBUTION WIDTH-CV 12.1 % (11.5-14.5)
[2021-11-13 21:37] LABS: HEMATOCRIT 30.6 % (42.0-52.0)
[2021-11-13 21:55] LABS: ALBUMIN 4.4 gm/dL (3.5-5.0); BILIRUBIN,TOTAL 0.6 mg/dL (0.2-1.2); CALCIUM 9.4 mg/dL (8.4-10.2); CREATININE, serum 12.73 mg/dL (0.72-1.25); TOTAL PROTEIN 7.5 gm/dL (6.2-8.1)
--- NOTE | 2021-11-14 01:51 | NUR ---
PATIENT ARRIVED TO ROOM 358 AT 0135 VIA WHEELCHAIR FROM ER. PATIENT ORIENTED TO ROOM. PATIENT IS ALERT AND ORIENTED X'S 4, ON ROOM AIR, ABLE TO AMBULATE INDEPENDENTLY. NO REQUESTS OR CONCERNS VERBALIZED BY PATIENT AT THIS TIME.
[2021-11-14 01:55] VITALS: BP 170/99; PULSE 85; TEMP 98.5
[2021-11-14 04:18] VITALS: BP 167/90; PULSE 85; TEMP 98.2
[2021-11-14 08:36] VITALS: BP 162/93; PULSE 81; TEMP 97.7
--- NOTE | 2021-11-14 10:52 | NUR ---
bending shed worker met with patient to discuss discharge plan. Patient reports that he lives at home with his Marium ([phone]) in [place]. Patient reports that he is independent with his ADL's and does not utilize any DME to assist with mobility. Patient reports to no oxygen needs at home. Patient reports that the only doctor he see's is and he utilizes [facility] in [place] for medications with no cost difficulty. Patient reports his gets his dialysis here in [facility] every M,W,F.Patient states he does have a DPOA-HC established listing his as his agent but that Dr. Grullon does not have a copy of it on file. Asked the patient that if his was to come and visit, to see if she could bring a copy of it up with her. Patient is planning on returning home once medically stable. Discharge plan: Home with .
--- NOTE | 2021-11-14 11:03 | NUR ---
Patient currently NPO and tolerating it well. Patient states he may need more pain meds later, instructed to call when he was ready. Assessment completed, currently waiting for orders to be put in.
[2021-11-14 11:34] VITALS: BP 177/96; PULSE 78; TEMP 97.6
[2021-11-14 15:10] VITALS: BP 165/105; PULSE 81; TEMP 97.7
--- NOTE | 2021-11-14 16:20 | NUR ---
PATIENT TOLERATED HIS HD TX WITH 450 ML OF FLUID REMOVED. NEXT PLANNED HD TX ON Sunday11/16/21 @ 0800.
--- NOTE | 2021-11-14 17:18 | NUR ---
Dr. Rosa saw the patient and switched him to clear liquid diet; Patient tolerating it well. Patient has c/o abdominal pain, dilaudid does help. Education provided on the effects of narcotics on the bowel.
[2021-11-14 21:08] VITALS: BP 175/94; PULSE 77; TEMP 98.3
[2021-11-15 00:38] VITALS: BP 156/81; PULSE 80; TEMP 98
[2021-11-15 04:30] VITALS: BP 153/87; PULSE 81; TEMP 98.1
[2021-11-15 06:36] LABS: BASO # 0.1 K/mm3 (0.0-0.2); EOS # 0.4 K/mm3 (0.0-0.7); EOS % 7.9 % (0.0-4.0); GRAN # 2.5 K/mm3 (1.4-6.5); GRAN % 48.2 % (42.2-75.2); LYMPH # 1.8 K/mm3 (1.2-3.4); MEAN CELL VOLUME 89 fl (80.0-100.0); MEAN CORPUSCULAR HGB CONC 34 g/dl (33.0-37.0); MEAN PLATELET VOLUME 9.4 fl (7.4-10.4); MONO # 0.4 K/mm3 (0.1-0.6); MONO % 7.7 % (1.7-9.3); PLATELET COUNT 116 K/mm3 (130-400); RED BLOOD COUNT 3.06 M/mm3 (4.20-5.60); REDCELL DISTRIBUTION WIDTH-CV 12.5 % (11.5-14.5)
[2021-11-15 06:47] LABS: HEMATOCRIT 27.2 % (42.0-52.0); HEMOGLOBIN 9.3 g/dl (13.5-18.0); MEAN CORPUSCULAR HEMOGLOBIN 30 pg (27-31)
[2021-11-15 07:01] LABS: ALBUMIN 3.4 gm/dL (3.5-5.0); BILIRUBIN,TOTAL 0.5 mg/dL (0.2-1.2); CALCIUM 8.8 mg/dL (8.4-10.2); CREATININE, serum 8.79 mg/dL (0.72-1.25); POTASSIUM 4.7 mmol/L (3.5-4.5)
[2021-11-15 08:00] VITALS: BP 184/97; PULSE 79; TEMP 99
--- NOTE | 2021-11-15 09:40 | NUR ---
Initial visit; Patient thanked Senior Informatica Developer for looking in on him, offering prayer and keeping him in Senior Informatica Developer's prayers. Senior Informatica Developer will follow up while patient is here at [place].
--- NOTE | 2021-11-15 10:09 | NUR ---
Patient laying in bed upon entering the room, appears to be doing well. Does c/o pain in his abdomen, which he rates at an 8/10. PRN diluadid and zofran given for pain. Patient's BP was elevated, systolic >180, PRN apresoline given. GI panel still needs to be collected, hat placed in toilet and cup taped to the door.
[2021-11-15 12:00] VITALS: BP 152/92; PULSE 77; TEMP 98
[2021-11-15] MEDS ORDERED: ULTRAM 50MG TAB50 MG PO (12:12)
--- NOTE | 2021-11-15 13:19 | NUR ---
Patient discharging home, to pick patient up. PRN IV dilaudid to be given prior to discharge. Okwin'd by Melissa.
== END 2021-11-15 14:35 | disposition home or self-care (01) | DRG 388 ==
LOC: COL.ER 20:45 → MEDICAL 11-14 00:08
PROVIDERS: Student in an Organized Health Care Education/Training Program; Surgery; ADMIT Internal Medicine Nephrology
PROC: 5A1D70Z Performance of Urinary Filtration, Intermittent, Less than 6 Hours Per Day (ICD-10-PCS; principal; 2021-11-14)
DX: K56.600 Partial intestinal obstruction, unspecified as to cause (principal); N18.6 End stage renal disease; I12.0 Hypertensive chronic kidney disease with stage 5 chronic kidney disease or end stage renal disease; N25.81 Secondary hyperparathyroidism of renal origin; E10.22 Type 1 diabetes mellitus with diabetic chronic kidney disease; D63.1 Anemia in chronic kidney disease; E83.39 Other disorders of phosphorus metabolism; Z86.73 Personal history of transient ischemic attack (TIA), and cerebral infarction without residual deficits; Z99.2 Dependence on renal dialysis
CPT/HCPCS: J0360; J1170; J1644; J2405; J7030; Q5105; Q9967

== ENCOUNTER → 2022-02-16 | Outpatient (CLI) | payer MEDICARE, MEDICAID ==
[~2022-02-16] MED LIST changes: +ULTRAM 50MG TAB50 MG PO
== END ==
LOC: ZCOL.LAB 16:49
DX: L05.01 Pilonidal cyst with abscess (principal)

== ENCOUNTER 2022-03-16 07:28 | Inpatient (IN) | payer MEDICARE, MEDICAID ==
[~2022-03-16] VITALS: Wt 83.7 kg
[2022-03-16 08:28] LABS: BASO # 0.1 K/mm3 (0.0-0.2); BASO % 0.8 % (0.0-2.0); EOS # 0.6 K/mm3 (0.0-0.7); EOS % 5.9 % (0.0-4.0); GRAN % 70.1 % (42.2-75.2); HEMATOCRIT 39.7 % (42.0-52.0); HEMOGLOBIN 13.1 g/dl (13.5-18.0); LYMPH # 1.6 K/mm3 (1.2-3.4); LYMPH % 15.6 % (20.0-51.0); MEAN CELL VOLUME 96 fl (80.0-100.0); MEAN CORPUSCULAR HEMOGLOBIN 32 pg (27-31); MEAN CORPUSCULAR HGB CONC 33 g/dl (33.0-37.0); MEAN PLATELET VOLUME 9.2 fl (7.4-10.4); MONO # 0.7 K/mm3 (0.1-0.6); MONO % 7.2 % (1.7-9.3); PLATELET COUNT 149 K/mm3 (130-400); RED BLOOD COUNT 4.13 M/mm3 (4.20-5.60); REDCELL DISTRIBUTION WIDTH-CV 12.7 % (11.5-14.5)
[2022-03-16 09:35] LABS: ALBUMIN 4.3 gm/dL (3.5-5.0); BILIRUBIN,TOTAL 0.6 mg/dL (0.2-1.2); CALCIUM 9.4 mg/dL (8.4-10.2); CREATININE, serum 9.17 mg/dL (0.72-1.25); TOTAL PROTEIN 7.8 gm/dL (6.2-8.1)
[2022-03-16 09:45] LABS: POTASSIUM 7.5 mmol/L (3.5-4.5)
[2022-03-16 16:11] VITALS: BP 111/66; PULSE 78; TEMP 97.9
[2022-03-16 19:44] VITALS: BP 99/63; PULSE 72; TEMP 98.1
--- NOTE | 2022-03-16 22:58 | NUR ---
Patient given PRN Dilaudid for pain around 1950 as requested. Given PRN Zofran as requested for nausea later on. BSAx4. Passing gas. Continues on bowel rest. Voices no questions, needs, or concerns at this time. In bed with call light within reach.
[2022-03-16 23:29] VITALS: BP 133/82; PULSE 72; TEMP 97.8
[2022-03-17 03:45] VITALS: BP 117/72; PULSE 73; TEMP 97.8
--- NOTE | 2022-03-17 05:57 | NUR ---
Patient recieved PRN Dilaudid as requested for pain during the night. Has been NPO for bowel rest. BSAx4. Passing gas. Voices no questions, needs, or concerns at this time. In bed with call light within reach.
--- NOTE | 2022-03-17 06:52 | NUR ---
CALL PLACED TO DR FITCH 03/16/22 AT APPROX 1830 REGARDING PATIENT BLOOD SUGAR READING OF 62 AND PATIENT COMPLAINING OF HYPOGLYCEMIC SYMPTOMS. VERBAL ORDER GIVEN TO INITIATE HYPOGLYCEMIA PROTOCOL PER HOSPITAL POLICY, GIVE PATIENT SMALL AMOUNTS OF APPLE JUICE TO DRINK AND INSTRUCT PATIENT TO TURN DOWN INSULIN PUMP TO 25%. ALL ORDERS CARRIED OUT AND PASSED OUT TO SUPERVISOR CALIBRATION NURSE.
[2022-03-17 07:01] LABS: BASO # 0.1 K/mm3 (0.0-0.2); BASO % 1.2 % (0.0-2.0); EOS # 0.5 K/mm3 (0.0-0.7); EOS % 7.2 % (0.0-4.0); GRAN # 3.1 K/mm3 (1.4-6.5); GRAN % 46.9 % (42.2-75.2); LYMPH # 2.4 K/mm3 (1.2-3.4); LYMPH % 35.9 % (20.0-51.0); MEAN CELL VOLUME 95 fl (80.0-100.0); MEAN CORPUSCULAR HGB CONC 33 g/dl (33.0-37.0); MEAN PLATELET VOLUME 9.4 fl (7.4-10.4); MONO # 0.6 K/mm3 (0.1-0.6); MONO % 8.5 % (1.7-9.3); PLATELET COUNT 112 K/mm3 (130-400); RED BLOOD COUNT 3.48 M/mm3 (4.20-5.60); REDCELL DISTRIBUTION WIDTH-CV 12.5 % (11.5-14.5)
[2022-03-17 07:06] LABS: HEMATOCRIT 33.2 % (42.0-52.0); MEAN CORPUSCULAR HEMOGLOBIN 32 pg (27-31)
[2022-03-17 07:12] LABS: ALBUMIN 3.6 gm/dL (3.5-5.0); CALCIUM 9.3 mg/dL (8.4-10.2); CREATININE, serum 7.6 mg/dL (0.72-1.25); PHOSPHOROUS 5.3 mg/dL (2.3-4.7); POTASSIUM 5.2 mmol/L (3.5-4.5)
[2022-03-17 08:13] VITALS: BP 120/77; PULSE 70; TEMP 98.1
--- NOTE | 2022-03-17 10:25 | NUR ---
Product Sales Representative met with patient to discuss discharge planning. Patient lives in [place] with his , Marium (ph#[phone]) and their 16 month old son, Greg. Patient sees Dr. Grullon for primary care and obtains medications from [facility] in . Patient does not use any DME and is independent with ADLS. Patient reports his is his DPOA-HC. Patient plans to return home at time of discharge. Discharge Plan: Home
--- NOTE | 2022-03-17 10:26 | NUR ---
Initial visit; Patient states he is doing "ok." He thanked Hospital Chief Executive Officer for stopping and offering a "Welcome and God's blessings." Patient quiet and appeared comfortable to be alone at that time.
[2022-03-17 11:20] VITALS: BP 136/67; PULSE 73; TEMP 98.2
--- NOTE | 2022-03-17 19:45 | NUR ---
Pt. sitting up in bed. Pt. is A&OX3, assessment complete. INT to rt. ac patent. Fistula noted to lt. arm. Pt. reported pain at a 5 on pain scale to abd. Gave pain meds. per orders. Pt. denies further needs, call light within reach.
[2022-03-17 21:29] VITALS: BP 110/70; PULSE 74; TEMP 98.2
[2022-03-17 23:35] VITALS: BP 130/82; PULSE 71; TEMP 98.5
[2022-03-18 03:45] VITALS: BP 128/72; PULSE 72; TEMP 98
[2022-03-18 06:46] LABS: BASO # 0.1 K/mm3 (0.0-0.2); BASO % 1.3 % (0.0-2.0); EOS # 0.5 K/mm3 (0.0-0.7); EOS % 8.1 % (0.0-4.0); GRAN # 2.3 K/mm3 (1.4-6.5); GRAN % 41.7 % (42.2-75.2); HEMOGLOBIN 10.3 g/dl (13.5-18.0); LYMPH # 2.2 K/mm3 (1.2-3.4); LYMPH % 39.4 % (20.0-51.0); MEAN CELL VOLUME 97 fl (80.0-100.0); MEAN CORPUSCULAR HEMOGLOBIN 32 pg (27-31); MEAN CORPUSCULAR HGB CONC 33 g/dl (33.0-37.0); MEAN PLATELET VOLUME 9.5 fl (7.4-10.4); MONO # 0.5 K/mm3 (0.1-0.6); MONO % 9.3 % (1.7-9.3); PLATELET COUNT 109 K/mm3 (130-400); RED BLOOD COUNT 3.26 M/mm3 (4.20-5.60); REDCELL DISTRIBUTION WIDTH-CV 12.4 % (11.5-14.5)
[2022-03-18 06:56] LABS: HEMATOCRIT 31.6 % (42.0-52.0)
[2022-03-18 07:04] LABS: ALBUMIN 3.5 gm/dL (3.5-5.0); CALCIUM 9.4 mg/dL (8.4-10.2); CREATININE, serum 7.32 mg/dL (0.72-1.25); POTASSIUM 5.4 mmol/L (3.5-4.5)
--- NOTE | 2022-03-18 07:33 | NUR ---
Patient laying in bed sleeping, easiliy awakened. A&Ox4. VSS. IV CDI. Denies pain and discomfort. Call light within reach
[2022-03-18 07:45] LABS: PHOSPHOROUS 5.6 mg/dL (2.3-4.7)
[2022-03-18 07:52] VITALS: BP 148/87; PULSE 69; TEMP 98.9
[2022-03-18 11:40] VITALS: BP 119/74; PULSE 70; TEMP 98
--- NOTE | 2022-03-18 12:18 | NUR ---
Follow-up visit; Patient says he might be a little better today when Bookkeeping Manager asked how he was doing. Bookkeeping Manager stated she would let him rest but again offered God's blessings.
[2022-03-18 15:56] VITALS: BP 136/82; PULSE 67; TEMP 97.9
--- NOTE | 2022-03-18 18:47 | NUR ---
Patient resting in bed, A&Ox4. VSS. IV CDI. Nursing staff encouraging the patient to ambulate to assist with having a BM. Reporting pain in abdomen, pain medication given when requested. Call light within reach
--- NOTE | 2022-03-18 20:00 | NUR ---
Pt. sitting up in bed. Pt. is a&OX3, assessment complete. INT to rt. ac patent. AV fistula to lt. upper arm. Pt. reports pain to the abd. at a 6 on pain scale, giving pain meds per orders. pt. denies further needs, call light within reach.
[2022-03-18 21:37] VITALS: BP 140/85; PULSE 70; TEMP 98
[2022-03-19 00:16] VITALS: BP 163/91; PULSE 71; TEMP 98.1
[2022-03-19 04:22] VITALS: BP 168/88; PULSE 74; TEMP 97.8
[2022-03-19 07:09] LABS: BASO # 0.1 K/mm3 (0.0-0.2); BASO % 1.1 % (0.0-2.0); EOS # 0.5 K/mm3 (0.0-0.7); GRAN # 2.4 K/mm3 (1.4-6.5); GRAN % 42.3 % (42.2-75.2); HEMOGLOBIN 10.1 g/dl (13.5-18.0); LYMPH # 2.2 K/mm3 (1.2-3.4); LYMPH % 39.7 % (20.0-51.0); MEAN CELL VOLUME 95 fl (80.0-100.0); MEAN CORPUSCULAR HEMOGLOBIN 32 pg (27-31); MEAN CORPUSCULAR HGB CONC 34 g/dl (33.0-37.0); MEAN PLATELET VOLUME 9.6 fl (7.4-10.4); MONO # 0.5 K/mm3 (0.1-0.6); MONO % 8.7 % (1.7-9.3); PLATELET COUNT 114 K/mm3 (130-400); RED BLOOD COUNT 3.17 M/mm3 (4.20-5.60); REDCELL DISTRIBUTION WIDTH-CV 12.3 % (11.5-14.5)
[2022-03-19 07:31] LABS: ALBUMIN 3.4 gm/dL (3.5-5.0); CALCIUM 9.4 mg/dL (8.4-10.2); CREATININE, serum 10.02 mg/dL (0.72-1.25); POTASSIUM 5.1 mmol/L (3.5-4.5)
[2022-03-19 07:47] LABS: PHOSPHOROUS 6.2 mg/dL (2.3-4.7)
[2022-03-19 08:00] VITALS: BP 152/90; PULSE 70; TEMP 98.5
--- NOTE | 2022-03-19 08:00 | NUR ---
Patient resting in bed, easily awakened with verbal command. A&Ox4. VSS IV CDI. Fistula intact. Denies pain and discomfort. Call light within reach
[2022-03-19] MEDS ORDERED: NORCO 325 MG-51 TAB PO (11:27)
[2022-03-19] MEDS ORDERED: COLACE 100100 MG/CAP PO (11:27)
[2022-03-19] MEDS ORDERED: ZOFRAN 4MG T4 MG/TAB PO (11:27)
--- NOTE | 2022-03-19 11:53 | NUR ---
Discharge paperwork reviewed with the patient. Patient verbalized an understanding to follow doctors orders. IV removed, tip intact. Patient to take a shower and wait for ride. Call light within reach
--- NOTE | 2022-03-19 12:40 | NUR ---
Patient ambulated independently to the ED entrance to awaiting vehicle. Discharge paperwork and personal belongings with the patient. No further needs expressed.
== END 2022-03-19 12:40 | disposition home or self-care (01) | DRG 388 ==
LOC: COL.ER 07:28 → SURG 10:20
PROVIDERS: Personal Emergency Response Attendant; Registered Nurse; ADMIT Internal Medicine Nephrology
PROC: 5A1D70Z Performance of Urinary Filtration, Intermittent, Less than 6 Hours Per Day (ICD-10-PCS; principal; 2022-03-16)
DX: K56.600 Partial intestinal obstruction, unspecified as to cause (principal); N18.6 End stage renal disease; I69.951 Hemiplegia and hemiparesis following unspecified cerebrovascular disease affecting right dominant side; I12.0 Hypertensive chronic kidney disease with stage 5 chronic kidney disease or end stage renal disease; E11.22 Type 2 diabetes mellitus with diabetic chronic kidney disease; D63.1 Anemia in chronic kidney disease; E83.39 Other disorders of phosphorus metabolism; E87.5 Hyperkalemia; Z96.41 Presence of insulin pump (external) (internal); Z99.2 Dependence on renal dialysis; Z79.4 Long term (current) use of insulin
CPT/HCPCS: J1170; J1644; J1815; J2270; J2405

== ENCOUNTER 2022-06-27 22:15 | Emergency (ER) | payer MEDICARE, MEDICAID ==
[~2022-06-27] VITALS: Ht 177.8 cm; Wt 84.1 kg
[~2022-06-27 22:15] MED LIST changes: +COLACE 100100 MG/CAP PO
[2022-06-27 22:24] VITALS: TEMP 98.8
[2022-06-27 23:26] VITALS: BP 122/80; PULSE 90
[2022-06-27] MEDS ORDERED: DOXYCYCLINE HY100 MG PO (23:30)
== END 2022-06-27 23:37 | disposition home or self-care (01) ==
LOC: COL.ER 22:15
DX: J18.9 Pneumonia, unspecified organism (principal); R01.1 Cardiac murmur, unspecified; I12.9 Hypertensive chronic kidney disease with stage 1 through stage 4 chronic kidney disease, or unspecified chronic kidney disease; E11.22 Type 2 diabetes mellitus with diabetic chronic kidney disease; N18.9 Chronic kidney disease, unspecified; Z88.1 Allergy status to other antibiotic agents; Z28.311 Partially vaccinated for COVID-19; Z99.2 Dependence on renal dialysis; Z79.4 Long term (current) use of insulin

== ENCOUNTER 2022-10-23 10:00 | Emergency (ER) | payer MEDICARE, MEDICAID ==
[~2022-10-23] VITALS: Ht 177.8 cm; Wt 75.0 kg
[~2022-10-23 10:00] MED LIST changes: +DOXYCYCLINE HY100 MG PO
[2022-10-23 10:04] VITALS: BP 213/96; TEMP 98.1
[2022-10-23] MEDS ORDERED: ROBAXIN 50500 MG/TAB PO (10:55)
[2022-10-23 11:10] VITALS: PULSE 86
[2023-05-02] MEDS ORDERED: VELPHORO PO (09:16)
[2023-05-02] MEDS ORDERED: PHOS LO (12:01)
[2023-05-02] MEDS ORDERED: NORCO 325 MG-51 TAB PO (12:57)
== END 2022-10-23 11:11 | disposition home or self-care (01) ==
LOC: COL.ER 10:00
DX: M25.551 Pain in right hip (principal); Z28.311 Partially vaccinated for COVID-19

== ENCOUNTER 2023-01-22 13:56 | Emergency (ER) | payer MEDICARE, MEDICAID ==
[~2023-01-22] VITALS: Ht 177.8 cm; Wt 78.0 kg
[~2023-01-22 13:56] MED LIST changes: +ROBAXIN 50500 MG/TAB PO
[2023-01-22 18:17] VITALS: BP 174/98; PULSE 74; TEMP 98.6
== END 2023-01-22 17:34 | disposition home or self-care (01) ==
LOC: COL.ER 13:56
DX: S90.121A Contusion of right lesser toe(s) without damage to nail, initial encounter (principal); E11.22 Type 2 diabetes mellitus with diabetic chronic kidney disease; N18.6 End stage renal disease; Z99.2 Dependence on renal dialysis; Z28.311 Partially vaccinated for COVID-19; W20.8XXA Other cause of strike by thrown, projected or falling object, initial encounter

== ENCOUNTER → 2024-06-26 | Outpatient (CLI) | payer MEDICARE, BC ==
[~2024-06-26] MED LIST changes: +FERROUSAL325 MG PO; +FOSRENOL500 MG PO; +NOVOLOG FLEX100 U/ML SQ; +PHOS LO; +PROTONIX 40MG T40 MG PO
== END ==
LOC: COL.VAS 10:20
DX: Z01.818 Encounter for other preprocedural examination (principal); J90 Pleural effusion, not elsewhere classified